=== PATIENT | male | born 1945 | race Caucasian/White ===

== ENCOUNTER → 2019-05-29 11:09 | Outpatient (CLI) | payer MEDICARE, OTHER, SELFPAY ==
--- NOTE | 2019-05-29 16:30 | LES_PTH ---
PATIENT: JADEN LEYVA LOC: [facility] U#:[id number] AGE/SX: 79/M ROOM: RE05/29/[address]: Dr. Devante Heller MD : 1945 BED: DIS: SPEC #: [id number] RECD: 05/30/19 09:58 STATUS: AMY GRETCHEN #: [id number] MARY: 05/29/19 16:[address]: Devante Heller DEPT: SURGICAL PATHOLOGY RECD BY: Javier Turcios Tissues: Skin of eyelid, NOS Procedures: Surgery Specimen Level IV HEADER OPERATION: Right upper lid lesion biopsy PRE-OP DIAGNOSIS: High suspicious for basal cell TISSUE SUBMITTED: Right upper eyelid lesion MICROSCOPIC DIAGNOSIS Right upper eyelid lesion, biopsy: Basal cell carcinoma. DEVON:mohsen 05/31/19 COMMENT Case has been reviewed in consultation with Dr. Vora who concurs with the above diagnosis. IDC:AM MICROSCOPIC DESCRIPTION Slides are reviewed. GROSS DESCRIPTION Received is one container labeled with the patient's name and not further designated. The specimen consists of two irregular fragments of best soft tissue that in aggregate measure 0.6 x 0.2 x 0.1 cm. The specimen is totally submitted in one cassette. / SJ:rg 05/30/19 TC:0 CPT: 80266
== END ==
PROVIDERS: Referring Provider Ophthalmology; Visit Provider Ophthalmology
DX: C44.1121 Basal cell carcinoma of skin of right upper eyelid, including canthus (principal)
CPT/HCPCS: 88305

== ENCOUNTER → 2019-05-29 16:30 | Outpatient (CLI) | payer MEDICARE, SELFPAY | PROVIDERS: Visit Provider Ophthalmology | DX: H02.9 Unspecified disorder of eyelid (principal) ==

== ENCOUNTER 2020-12-16 18:30 | Inpatient (IN) | payer MEDICARE, OTHER, SELFPAY ==
[2020-12-16 18:57] VITALS: BP 160/88; PULSE 81; RESP 18; TEMP 36.6; O2SAT 95; BMI 44.2
[2020-12-16 19:45] VITALS: BP 174/78; PULSE 86; RESP 18; TEMP 37.2; O2SAT 94
[2020-12-16 22:20] VITALS: O2SAT 94
[2020-12-16] MEDS: Carvedilol 3.125 MG TABLET PO (23:07)
[2020-12-16] MEDS: Atorvastatin Calcium 40 MG Tablet PO (23:07)
[2020-12-17 00:11] VITALS: O2SAT 96
--- NOTE | 2020-12-17 00:12 | CPS ---
pt has own cpap machine with nasal mask
[2020-12-17 05:44] LABS: Absolute Lymphocyte Count 0.92 X10^3/uL (0.83-4.51); Basophil# 0.02 X10^3/uL; Basophil% 0.6 % (0-1); Eosinophil# 0.09 X10^3/uL; Eosinophils% 2.7 % (0-5); Hematocrit 35.7 % (40-54); Lymphocyte # 0.92 X10^3/ul (0.83-4.51); Lymphocyte % 27.1 % (19-41); Mean Corp Hgb Conc 33.6 g/dL (32-36); Mean Corpuscular Hgb 30.2 pg (27.0-32.0); Mean Corpuscular Volume 89.9 fL (80-94); Mean Platelet Vol. 9.8 fl (6.2-12.0); Monocyte# 0.36 X10^3/uL; Monocyte% 10.6 % (0-10); NRBC Flagged by Analyzer 0 % (0-5); Neutrophil # 1.97 X10^3/uL (2.7-7.7); Neutrophil % 58.1 % (47-70); Platelet Count 146 K/mm3 (150-450); RBC Distribution Width CV 13.5 % (11.6-14.6); RBC Distribution Width SD 44.6 fl (35.1-43.9); Red Blood Count 3.97 M/mm3 (4.6-6.2); White Blood Count 3.4 K/mm3 (4.4-11.0)
[2020-12-17 06:28] LABS: ALB/GLOB Ratio 0.8 RATIO (0.9-2.4); AST(SGOT) 48 U/L (15-37); Alanine Aminotransfer ALT/SGPT 54 U/L (16-61); Alkaline Phosphatase 73 U/L (45-117); Anion Gap 6 (5-15); BUN 13 mg/dL (7-18); BUN/Creat Ratio 18.9 RATIO (10-20); Calcium,Total 8.3 mg/dL (8.5-10.1); Chloride 106 mmol/L (98-107); Creatinine, Serum 0.69 mg/dL (0.70-1.30); EST Glomerular Filtration Rate 119 mL/min (>60); Est Glom Filt Rate - Afr Amer 144 mL/min (>60); Estimated Creatinine Clearance 51.37 ml/min; Glucose 152 mg/dL (74-106); Magnesium 2.4 mg/dL (1.6-2.6); Phosphorus 2.7 mg/dL (2.5-4.9); Potassium 3.5 mmol/L (3.5-5.1); Sodium Level 138 mmol/L (136-145)
[2020-12-17 08:02] VITALS: BP 168/75; PULSE 69; RESP 18; TEMP 37.1; O2SAT 93
[2020-12-17] MEDS: Carvedilol 3.125 MG TABLET PO ×2 (08:08→17:28)
[2020-12-17] MEDS: amLODIPine 5 MG Tablet PO ×2 (08:08→12:26)
[2020-12-17] MEDS: Aspirin E.C. 81 MG Tablet PO (08:09)
[2020-12-17] MEDS: Clopidogrel Bisulfate 75 MG Tablet PO (08:09)
[2020-12-17] MEDS: Senna/Docusate Sodium 1 Tablet 2 TABLET PO (08:09)
[2020-12-17 10:55] VITALS: BMI 44.2
--- NOTE | 2020-12-17 12:03 | HP.PCM_ITS ---
HPI - General General Date of Admission: 12/16/20 Date of Service: 12/17/20 Chief Complaint: Debility secondary to ischemic right MCA stroke HPI Narrative JADEN LEYVA, is a 75-year-old M with a past medical history of hypertension, hyperlipidemia, coronary artery disease, history of CABG, history of bioprosthetic aortic valve replacement, WILLIAM, morbid obesity, newly diagnosed diabetes mellitus type 2, DVT with pulmonary embolus (pt can not recall if provoked or unprovoked), prostate cancer diagnosed in 2005 ( treated with sh ots that he still gets monthly form his urologist), tobacco dependence in remission, prostatic hypertrophy, dilated ascending aorta and radicular pain in the Left buttock and groin who present presented to an outside ER on 12/10/20 with LUE weakness and numbness. The LLE had been weak for months and he attributes this to back problems which started after he fell off a treadmill. The CTB showed no acute pathology and he was given TPA in the ED and then transported to [facility]. Initially the CT at [facility] showed lacunar infarcts in the BL basal ganglia and the joseph. MRI was not done due to WILLIAM and valve replacement however he had an extension of the sx and the LUE became flaccid. MRI showed an ischemic infarct in the R MCA distribution gretel the R parietal and the R occipital lobes. There was a very small area of hemorrhagic transformation which is stable. He was placed on dual antiplatelet drugs which he will take for 3 months and then 1 of the antiplatelet drugs can be discontinued. ECHO showed no PFO and he had no atrial tachy dysrhythmias or AF. The EF is 80%. The findings on the MRI with multiple areas of infarct in the R parietal and occipital lobes is suspicious for AF and he will need an event monitor following DC from Rehab. He has multiple RF's for AF. He was transferred to the acute rehab unit at [facility] on 12/16/20 for 3 hours of therapy daily to restore function/independence at or near his level prior to the stroke. COUNTS INCLUDE 234 BEDS AT THE [facility] Medical History (Updated 12/17/20 @ 18:[address] Ursula Louie DO) Chronic sphenoidal sinusitis Coronary artery disease CVA (cerebral vascular accident) History of prostate cancer History of TIA (transient ischemic attack) History of venous thromboembolism HTN (hypertension) Hyperlipidemia Morbid obesity Obstructive sleep apnea Tobacco dependence in remission Home Medications amlodipine 5 mg PO DAILY 12/16/20 [History Last Taken Unknown] aspirin 81 mg PO DAILY 12/16/20 [History Last Taken Unknown] atorvastatin 40 mg PO QHS 12/16/20 [History Last Taken Unknown] carvedilol 3.125 mg PO BID 12/16/20 [History Last Taken Unknown] clopidogrel 75 mg PO/SL DAILY 12/16/20 [History Last Taken Unknown] evolocumab [Repatha Syringe] 140 mg SUBCUT QWEEK 12/16/20 [History Last Taken 12/13/20] tamsulosin 0.4 mg PO DAILY 12/16/20 [History Last Taken Unknown] Allergy/AdvReac Type Severity Reaction Status Date / Time losartan Allergy Other Verified 12/16/20 19:27 Family History (Updated 12/17/20 @ 15:[address] Ursula Louie DO) Father Cancer lymphosarcoma Mother Cancer throughout her internal organs......he thinks it started in the liver Surgical History (Updated 12/17/20 @ 16:[address] Ursula Louie DO) H/O aortic valve replacement History of coronary artery bypass graft History of partial colectomy History of right shoulder replacement History of total left knee replacement (TKR) History of total right knee replacement (TKR) Social History (Updated 12/17/20 @ 16:[address] Ursula Louie DO) household members: spouse housing: house current occupation: retired Smoking Status: Former smoker details: rare use......1 bottle of wine lasts him a year caffeine: Yes ROS Constitutional Constitutional: Reports weakness; Denies anorexia, change in weight, chills, fatigue, fever(s) or night sweats Eyes Eyes: Denies blurry vision, change in vision, double vision, eye pain or loss of vision ENT HEENT: Reports abnormal hearing and post nasal drip; Denies dysphagia, headache(s), hearing loss, loss taste/smell, nasal congestion, nasal discharge, sinus pain, sinus pressure or sore throat Cardiovascular Cardiovascular: Reports edema; Denies chest pain, dyspnea on exertion, light headedness, orthopnea, palpitations, paroxysmal nocturnal dyspnea or syncope Respiratory/Chest Respiratory/Chest: Reports cough and shortness of breath with exertion; Denies dyspnea, shortness of breath at rest or wheezing Gastrointestinal Gastrointestinal: Denies abdominal pain, constipation, diarrhea, dyspepsia, hematemesis, hematochezia, nausea or vomiting Genitourinary Genitourinary: Denies dysuria, hematuria or urinary incontinence Musculoskeletal Musculoskeletal: Reports back pain, extremity pain and other Details: He has pain in the R buttock that radiates around to the groin. ; Denies joint pain, joint swelling or neck pain Integumentary Integumentary: Reports dry skin; Denies jaundice, rash or wounds Neurologic Neurologic: Denies confusion, disequilibrium, dizziness, focal weakness, headache(s), paresthesias, seizures or tremor(s) Psychiatric Psychiatric: Denies anxiety, depression, homicidal ideation or suicidal ideation Endocrine Endocrinology: Denies change in body appearance, polydipsia or polyuria Hematologic/Lymphatic Hematologic/Lymphatic: Denies easy bleeding, easy bruising or lymphadenopathy Allergic/Immunologic Allergic/Immunologic: Denies rhinitis, eczemia or asthma Vital Signs Vital Signs Vital Signs: 12/16/20 18:57 12/16/20 19:45 12/16/20 22:20 Temperature 97.9 F 99 F Temperature Source Oral Temporal Pulse Rate 81 86 Respiratory Rate 18 18 Respiratory Effort Normal Blood Pressure 160/88 H 174/78 H Blood Pressure Mean 112 110 Blood Pressure Source Monitor Monitor Blood Pressure Position Semi-Fowlers Semi-Fowlers Blood Pressure Location Right Arm Right Arm Pulse Ox 95 94 94 Oxygen Delivery Method Room Air Room Air Room Air 12/17/20 00:11 12/17/20 08:02 Temperature 98.7 F Temperature Source Oral Pulse Rate 69 Respiratory Rate 18 Respiratory Effort Blood Pressure 168/75 H Blood Pressure Mean 106 Blood Pressure Source Monitor Blood Pressure Position Semi-Fowlers Blood Pressure Location Right Arm Pulse Ox 96 93 Oxygen Delivery Method Bi-pap Room Air Weight Weight: 250 lb Body Mass Index (BMI) 44.2 Indicators for Scoring Admitted with or Primary Diagnosis of CVA/Stroke: Yes Hx of CVA/Stroke: Yes Modified Pato Score MRS Score at time of Evaluation: 5-Severe disability NIHSS NIHSS 1a. Level of Consciousness: Alert; keenly responsive 1b. LOC Questions: Answers BOTH questions correctly. 1c. LOC Commands: Performs both tasks correctly. 2. Best Gaze: Normal 3. Visual: No visual loss 4. Facial Palsy: Partial paralysis (total or near-total paralysis of lower face) 5a. Left Arm: No movement 5b. Right Arm: Drift; arm drifts downward but doesn?t hit the bed 6a. Left Leg: Some effort against gravity; 6b. Right Leg: No drift; leg holds 30-degree position for full 5 seconds 8. Sensory: Normal; no sensory loss 9. Best Language: No aphasia; normal 10. Dysarthria: Normal 11. Extinction and Inattention: No abnormality Total: 9 Stroke Questions Stroke Team Activated: No Physical Exam Const alert, oriented x3, no apparent distress and well nourished Constitutional Narrative: Making good eye contact, appropriate. 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 the carotids had a brisk upstroke and good pulse volume General: trachea midline; Negative for lymphadenopathy Resp normal respiratory effort, no use of accessory muscles and clear to auscultation bilaterally Resp Narrative: Not tachypneic and no conversational dyspnea. Diminished BS's - possibly due to body habitus Cardio regular rate, regular rhythm, S1 normal heart sound, S2 normal heart sound, no murmurs, no rub and no gallops GI normal to inspection, nondistended, normoactive bowel sounds, soft to palpation and non-tender GI Narrative: No guarding with palpation. Extremity Extremity Narrative: Negative Timbo's and Christian's signs but the left calf is painful to touch. He has edema of the legs and his fingers appear swollen. Good capillary refill General Extremity: Negative for clubbing or cyanosis Skin Skin Narrative: No rashes, no skin breakdown. Neuro oriented x3 Neuro Narrative: He has no dysmetria. He can not do heel to cobb due to inflexibilty of the Knees. Can not do finger nose on the L because the LUE is flaccid. Psych affect normal Psych Narrative: Appropriate, making good eye contact. Able to stay on topic but he is forgetful and is having difficulty remembering details of his medical history. No flight of ideas. Does not appear anxious or depressed. Conversant and relating well to staff. He is friendly and polite Results Lab / Micro Data Result Diagrams: 12/17/20 05:27 12/17/20 05:27 Labs: Laboratory Results - last 24 hr 12/17/20 05:27: WBC 3.4 L, RBC 3.97 L, Hgb 12.0 L, Hct 35.7 L, MCV 89.9, MCH 30.2, MCHC 33.6, RDW Std Deviation 44.6 H, RDW Coeff of Esequiel 13.5, Plt Count 146 L, MPV 9.8, Immature Gran % (Auto) 0.900, Neut % (Auto) 58.1, Lymph % (Auto) 27.1, [place] % (Auto) 10.6 H, Eos % (Auto) 2.7, Baso % (Auto) 0.6, Absolute Neuts (auto) 2.0, Absolute Lymphs (auto) 0.92, Nucleated RBC % 0 12/17/20 05:27: Sodium 138, Potassium 3.5, Chloride 106, Carbon Dioxide 26.0, Anion Gap 6, BUN 13, Creatinine 0.69 L, Estim Creat Clear Calc 51.37, Est GFR (MDRD) Af Amer 144, Est GFR (MDRD) Non-Af 119, BUN/Creatinine Ratio 18.9, Glucose 152 H, Calcium 8.3 L, Phosphorus 2.7, Magnesium 2.4, Total Bilirubin 0.50, AST 48 H, ALT 54, Alkaline Phosphatase 73, Total Protein 7.0, Albumin 3.0 L, Globulin 4.0, Albumin/Globulin Ratio 0.8 L Assessment & Plan Assessment/Plan (1) Physical debility: (2) Ischemic cerebrovascular accident (CVA): (3) Cognitive dysfunction: (4) Left hemiparesis: (5) Pancytopenia: (6) Diabetes mellitus type 2 in obese: (7) Obstructive sleep apnea: (8) Ascending aorta dilation: (9) Carotid stenosis, bilateral: (10) Chronic sphenoidal sinusitis: (11) Low HDL (under 40): (12) Morbid obesity: (13) Hyperlipidemia: (14) HTN (hypertension): (15) Coronary artery disease: (16) H/O aortic valve replacement: (17) History of coronary artery bypass graft: (18) Radicular pain of right lower extremity: PLAN: PLAN PT for gait stability OT for ADL's ST for evaluation Analgesics as needed Bowel protocol Fall precautions Assess for Anxiety/Depression GI prophylaxis not indicated - asymptomatic with no hx of PUD DVT prophylaxis with SCD's and Cristobal xie for now and will need to ask neurology when we can start Lovenox......has had an unprovoked DVT/PE in the past. there was a small hemorrhagic conversion after TPA Follow up with Dr. Smiley and neurology and his rn tele following DC from [facility] Rehab AM lab including CMP, CBC, Mag and Phos - reviewed Needs an event monitor at DC. BP is not adequately controlled. Will increase the Amlodipine to 10 mg daily and add Hydralazine PRN Start Melatonin at night 1700 calorie cardiac diet. Weight loss advised. I reviewed the instructional systems design consultant's recommendations dual antiplatelet agents for 3 month and then Dc one of the drugs. Diabetic education while he is here - the DM is a new diagnosis. Charges/Coding Visit Charges Inpatient E&M: 32685 Init Hosp L3
--- NOTE | 2020-12-17 12:04 | PCM.RU.PYE ---
Admission Information Primary Diagnosis:: Debility due to ischemic CVA Status Changes from Prescreening?: No changes Identified Actual Problem List:: Cognitve Impr/Memory Loss, Mobility Impaired, Self Care Deficit, Ineffective Communication, Know.Dfct/Disease Process, Know.Dfct of Medicaitons, Diabetes, Hyperglycemia, BP, Hypertension and Alteration-Leisure Activ. Potential Problem List:: DVT, Bleeding, Infection, UTI, Aspiration, Falls, Skin Integrity and Depression Risk of Complications DVT: LMWH and ABELARDO Hose Bleeding: Monitor Lab Values, Nursing to Teach Precautions for anti-coagulation therapy., Wound, if applicable, to be assessed every shift. and Stroke patients assessed for lethargy or change in status. Infection: Clinical Staff to Monitor for S/S of infection: and S/S of infection include fever, redness, warmth, etc. Urinary Tract Infection: Monitor for frequency, burning, discomfort, or incontinence. and Nursing will obtain urine sample for urinalysis and C&S when ordered. Aspiration: Clinical staff will monitor for coughing, drooling, congestion., Speech will evaluate swallowing and dsyphasia. and Nursing will monitor patient swallowing during meals. Falls: Patient will be evaluated for Fall Precautions and Patient will be placed on Fall Precautions as indicated per protocol. Skin Breakdown: Nursing will assess skin daily using assessment tool. and Nursing will place on Skin Breakdown Precautions as indicated. Pain: Clinical staff will assess patient's pain level per protocol., Medications will be given, if needed, and the pain level reassessed. and Other methods: Massage, distraction, decrease stimulus, etc. used PRN. Plan of Care Patient requires physician specializing in physical medicine and rehab oversight to provide close medical supervision of rehab issues including: Pain Management, Sleep Problems, Bowel and Bladder, Medical and co-morbidity Management, DVT prophylaxis, Rehabilitation Leadership and Coordination of treatment team Patient needs Physical Therapy: For a minimum of 1 hour and At least 5 out of 7 days Patient needs Physical Therapy to improve:: Mobility, Strengthening, Transfers, Stretching, ROM, Endurance, Stairs, Gait and Balance Patient needs Occupational Therapy: For a minimum of 1 hour and At least 5 out of 7 days Patient needs Occupational Therapy to improve ADL's incl.: Eating, Grooming, Bathing, Dressing, Toileting, Toilet transfers, Community Reintegration, Higher functioning activities, Household tasks, Adaptive Equipment, Splinting and Other activities as determined Patient requires speech therapy: For a minimum of 1 hour and At least 5 out of 7 days Patient requires speech therapy for: Swallowing, Cognition, Language Skills and Compensatory Strategies Patient requires 24/ Rehabilitation Nursing for: Pain Issues, Identifying and preventing risk factors, Monitoring and reporting current medical conditions, Assisting with ambulation, transfer, and all ADL's, Teaching patients about disease process and medications, Family teaching, Providing safe environment, Bowel and Bladder Issues, Skin integrity and Medication Management Patient needs Civil Design Specialist/ Case Management for: Discharge Planning, Arranging Home Equipment or Services and Family Interventions Patient needs Dietary and Nutrition Services for: Adequate Nutrition, Nutritional Supplements and Nutritional Education Goals Patient will remain: free from falls and or injury at time of discharge. Patient will perform bed mobility at: MOD I level of assist. Patient will complete transfers from bed to chair at: MOD I level of assist. Patient will ambulate: - (Will ambulate 50 feet with the least restrictive device at standby assist on various surfaces) Patient will complete upper body dressing at: MOD I level of assist. Patient will complete lower body dressing at: MOD I level of assist. Patient will complete toileting at: MOD I level of assist. Patient will perform bathing at: MOD I level of assist. Patient will complete grooming at: MOD I level of assist. Patient will complete home management skills at: MOD I level of assist. Patient will achieve: - (8 steps with 2 handrails and 1 curb step) Patient will have pain level of: of 3 or less Patient's skin will: remain intact Patient will receive: adequate nutrition. Discharge Planning Pt Prognosis for Sig. Practical Improv. w/in Reasonable Time: Good Estimated Length of stay (days): 28 Anticipated D/C Destination: Home with Outpt Therapy Was Preadmission Assessment Accurate?: Yes
[2020-12-17] MEDS: Tamsulosin HCl 0.4 MG Capsule PO (17:28)
[2020-12-17 19:30] VITALS: BP 148/66; PULSE 87; RESP 18; TEMP 36.5; O2SAT 93
[2020-12-17 21:00] VITALS: BMI 44.2
[2020-12-17] MEDS: MELATONIN 3 MG TABLET PO (21:30)
[2020-12-17] MEDS: Atorvastatin Calcium 40 MG Tablet PO (21:30)
[2020-12-18 07:33] VITALS: BP 154/71; PULSE 73; RESP 18; TEMP 36.1; O2SAT 95
[2020-12-18 07:40] VITALS: O2SAT 94
[2020-12-18] MEDS: Clopidogrel Bisulfate 75 MG Tablet PO (09:06)
[2020-12-18] MEDS: Aspirin E.C. 81 MG Tablet PO (09:06)
[2020-12-18] MEDS: amLODIPine 10 MG Tablet PO (09:06)
[2020-12-18] MEDS: Menthol/Lanolin/Calamine/Znox 113 GM Tube 1 APPLIC TOPICAL ×2 (09:08→19:43)
[2020-12-18] MEDS: Nystatin Powder 15gm Bottle 1 APPLIC TOPICAL ×2 (09:10→19:45)
--- NOTE | 2020-12-18 09:26 | PCM.PN.BLA ---
Progress Note Afebrile VSS-the blood pressure is 154/71 today. Amlodipine was increased to 10 mg daily yesterday. Diastolic is within goal. Heart rate is well controlled. Will continue to monitor the BP and if in 3-4 days the systolic is still above goal will increase the Coreg Maintaining appropriate oxygen saturation on RA Oral intake is good Discussed with nursing - no problems that need addressed Reviewed the PT/OT/ST notes Medication list reviewed. He is coughing less today. He denies CP, SOB at rest, N/V/abd pain, lightheadedness, C/D, calf pain. Physical Exam Const alert, oriented x3 and no apparent distress Constitutional Narrative: sitting in the recliner at the bedside General Appearance: cooperative Nutritional Appearance: morbidly obese HEENT moist oral mucous membranes Eyes PERRL, EOMs intact bilaterally, conjunctivae normal, no scleral icterus and normal visual garland by confrontation Resp normal respiratory effort and clear to auscultation bilaterally Resp Narrative: BS's are diminished and this is likely due to body habitus Effort and Inspection: able to speak in complete sentences Cardio regular rate, regular rhythm, no murmurs, no rub and no gallops GI normal to inspection, nondistended, normoactive bowel sounds Extremity Extremity Narrative: flexibility in the knees is poor. He is still very painful in the left calf and although there is no significant edema the Left calf is bigger and he does have a hx of an unprovoked DVT/PE in the past and has not been on pharmacologic DVT prophylaxis. Skin General Skin Exam: no breakdown Rashes: no rashes Assessment & Plan Assessment/Plan (1) Rhinitis: QUALIFIERS: Rhinitis type: chronic Qualified Code(s): J31.0 - Chronic rhinitis (2) Radicular pain of right lower extremity: (3) Physical debility: (4) Pancytopenia: (5) Obstructive sleep apnea: (6) Ischemic cerebrovascular accident (CVA): (7) HTN (hypertension): (8) Hyperlipidemia: PLAN: 1. Start Atrovent nasal spray 2 sprays each nostril twice daily for rhinitis and postnasal drainage with chronic cough 2. Start Lyrica 25 mg p.o. twice daily for radicular pain in the LLE 3. Get a venous US of the L calf 4. Recheck a CBC with diff and a BMP on Monday. Visit Charges Inpatient E&M: 13994 Subs Hosp L2
[2020-12-18] MEDS: Carvedilol 3.125 MG TABLET PO ×2 (10:50→17:00)
[2020-12-18] MEDS: Pregabalin 25 MG Capsule PO ×2 (10:50→19:49)
--- NOTE | 2020-12-18 11:14 | NURSING ---
[facility]to see when pt will be able to start Lovenox. Messages is to be sent to the doctor and she will call back.
[2020-12-18] MEDS: Ipratropium Bromide 0.06% NASAL SPRAY 2 SPRAY NASAL ×2 (13:08→19:43)
--- NOTE | 2020-12-18 14:35 | NURSING ---
received call from Shamika wang-me to start Lovenox
[2020-12-18 14:54] VITALS: BMI 44.2
--- NOTE | 2020-12-18 15:18 | VDLE_ITS ---
Reason For Study: Pain Procedure LEFT This is a venous duplex using B-mode, color GSV is normal. flow and spectral Doppler. CFV is compressible, spontaneous, phasic, Exam performed portable in patient room. competent, and demonstrates normal A preliminary report was called and/or faxed augmentation. to Dr. Louie. FV is compressible, spontaneous, phasic, competent and demonstrates normal augmentation. POP V is compressible, spontaneous, phasic, competent and demonstrates normal augmentation. T/P Trunk is compressible. PTV is compressible. LT PerV is compressible. VL/Venous Duplex US, Unilateral Interpretation Summary There is no evidence of left lower extremity deep vein thrombosis. Left great s aphenous vein appears patent and compressible segmentally. Ordering Physician: Ursula Louie Performed By: Catherine Ash RVT
[2020-12-18] MEDS: Tamsulosin HCl 0.4 MG Capsule PO (17:00)
[2020-12-18 19:20] VITALS: BP 147/84; PULSE 70; RESP 18; TEMP 36.6; O2SAT 95
[2020-12-18] MEDS: Atorvastatin Calcium 40 MG Tablet PO (19:45)
[2020-12-18] MEDS: MELATONIN 3 MG TABLET PO (19:45)
[2020-12-18 21:01] LABS: Bedside Glucose 157 mg/dL (70-110)
[2020-12-18 23:55] VITALS: BMI 44.2
[2020-12-18 23:56] VITALS: PULSE 70; RESP 18
[2020-12-19] VITALS (7 sets, daily range): BP systolic 151–160; BP diastolic 51–79; PULSE 60–78; RESP 16; TEMP 36.6–36.7; O2SAT 94–97; BMI 44.2
[2020-12-19 06:41] LABS: Bedside Glucose 147 mg/dL (70-110)
[2020-12-19] MEDS: Pregabalin 25 MG Capsule PO ×2 (08:29→20:47)
[2020-12-19] MEDS: Ipratropium Bromide 0.06% NASAL SPRAY 2 SPRAY NASAL ×2 (08:29→20:42)
[2020-12-19] MEDS: Aspirin E.C. 81 MG Tablet PO (08:30)
[2020-12-19] MEDS: amLODIPine 10 MG Tablet PO (08:30)
[2020-12-19] MEDS: Carvedilol 3.125 MG TABLET PO ×2 (08:30→16:42)
[2020-12-19] MEDS: Clopidogrel Bisulfate 75 MG Tablet PO (08:31)
[2020-12-19] MEDS: Menthol/Lanolin/Calamine/Znox 113 GM Tube 1 APPLIC TOPICAL ×2 (08:32→20:47)
[2020-12-19] MEDS: hydrALAZINE 10 MG Tablet PO ×3 (08:32→20:55)
[2020-12-19] MEDS: Nystatin Powder 15gm Bottle 1 APPLIC TOPICAL ×2 (08:33→20:48)
[2020-12-19] MEDS: Tamsulosin HCl 0.4 MG Capsule PO (16:41)
[2020-12-19] MEDS: MELATONIN 3 MG TABLET PO (20:43)
[2020-12-19] MEDS: Atorvastatin Calcium 40 MG Tablet PO (20:43)
[2020-12-19 20:46] LABS: Bedside Glucose 223 mg/dL (70-110)
[2020-12-20 01:38] VITALS: BMI 44.2
--- NOTE | 2020-12-20 04:01 | NURSING ---
REVIEWED AND AGREE WITH WOOD CABINET FINISHER'S FUNCTIONAL ASSESSMENT AND HANDOFF CHARTING.
[2020-12-20 06:45] LABS: Bedside Glucose 164 mg/dL (70-110)
[2020-12-20 07:25] VITALS: BP 156/78; PULSE 70
[2020-12-20] MEDS: hydrALAZINE 10 MG Tablet PO ×2 (07:25→17:09)
[2020-12-20 08:15] VITALS: BP 149/74; PULSE 68; RESP 12; TEMP 36.6; O2SAT 96
[2020-12-20] MEDS: amLODIPine 10 MG Tablet PO (08:24)
[2020-12-20] MEDS: Ipratropium Bromide 0.06% NASAL SPRAY 2 SPRAY NASAL ×2 (08:24→22:38)
[2020-12-20] MEDS: Carvedilol 3.125 MG TABLET PO (08:24)
[2020-12-20] MEDS: Aspirin E.C. 81 MG Tablet PO (08:24)
[2020-12-20] MEDS: Clopidogrel Bisulfate 75 MG Tablet PO (08:24)
[2020-12-20] MEDS: Pregabalin 25 MG Capsule PO ×2 (08:27→22:37)
[2020-12-20] MEDS: Menthol/Lanolin/Calamine/Znox 113 GM Tube 1 APPLIC TOPICAL ×2 (08:27→22:37)
[2020-12-20] MEDS: Nystatin Powder 15gm Bottle 1 APPLIC TOPICAL ×2 (08:28→22:38)
[2020-12-20] MEDS: Acetaminophen 325 MG Tablet 650 MG PO (09:21)
--- NOTE | 2020-12-20 10:45 | NURSING ---
Dr. Louie aware of BP readings, see new order. Patient aware.
[2020-12-20 13:04] VITALS: BMI 44.2
[2020-12-20 17:09] VITALS: PULSE 84
[2020-12-20] MEDS: Tamsulosin HCl 0.4 MG Capsule PO (17:09)
[2020-12-20 17:11] VITALS: BP 154/88
[2020-12-20] MEDS: Carvedilol 6.25 MG Tablet PO (17:11)
[2020-12-20 18:55] VITALS: PULSE 75; RESP 16; TEMP 36.2; O2SAT 95
[2020-12-20 20:30] LABS: Bedside Glucose 206 mg/dL (70-110)
[2020-12-20 21:58] VITALS: BP 120/65; PULSE 79
[2020-12-20] MEDS: MELATONIN 3 MG TABLET PO (22:37)
[2020-12-20] MEDS: Atorvastatin Calcium 40 MG Tablet PO (22:37)
[2020-12-21] VITALS (7 sets, daily range): BP systolic 143–147; BP diastolic 58–77; PULSE 63–79; RESP 17–18; TEMP 36.5; O2SAT 97–98; BMI 44.2
[2020-12-21] MEDS: hydrALAZINE 10 MG Tablet PO ×3 (06:37→22:00)
[2020-12-21 07:05] LABS: Bedside Glucose 139 mg/dL (70-110)
[2020-12-21] MEDS: amLODIPine 10 MG Tablet PO (08:04)
[2020-12-21] MEDS: Aspirin E.C. 81 MG Tablet PO (08:04)
[2020-12-21] MEDS: Clopidogrel Bisulfate 75 MG Tablet PO (08:04)
[2020-12-21] MEDS: Carvedilol 6.25 MG Tablet PO ×2 (08:04→17:09)
[2020-12-21] MEDS: Ipratropium Bromide 0.06% NASAL SPRAY 2 SPRAY NASAL ×2 (08:04→20:24)
[2020-12-21] MEDS: Pregabalin 25 MG Capsule PO ×2 (08:06→20:24)
[2020-12-21] MEDS: Nystatin Powder 15gm Bottle 1 APPLIC TOPICAL ×2 (08:09→22:00)
[2020-12-21] MEDS: Menthol/Lanolin/Calamine/Znox 113 GM Tube 1 APPLIC TOPICAL ×2 (08:10→20:28)
--- NOTE | 2020-12-21 08:56 | PCM.PN.BLA ---
Progress Note Afebrile VSS - Systolic BP is consistently > 145. Coreg was increased to 6.25 mg BID yesterday Maintaining appropriate oxygen saturation on RA while awake Oral intake is good Blood sugar record was reviewed. The last 2 evenings the at bedtime blood sugar was greater than 200. No hypoglycemia Discussed with nursing - no problems that need addressed Reviewed the PT/OT/ST notes Medication list reviewed. He is not on medication for DM II. He insists that the cough her perseverates on is due to having taken Losartan a few years ago. when I pointed out the the cough associated with ARB's and POLINA inhibitors resolves with discontinuation of the drug he got very angry and started yelling. He is having some difficulty word finding today and he is resistant to doing ST for cognitive function because he does not feel he has a problem and the tasks that they have him do are for a 4th grader. I rarely hear him come now since the Atrovent nasal spray was started. He has been a smoker in the past. He has WILLIAM. He does not think he has had PFT's in the past. The cough goes away but, always come back. He denies CP. He also denies SOB at rest, palpitations, N/V/ abd pain, dysuria. Physical Exam Const alert Constitutional Narrative: Sitting in the recliner at the bedside and looks comfortable. He gets intermittently angry and abrupt. He is uncooperative at times, gretel with ST. General Appearance: uncooperative Eyes PERRL, EOMs intact bilaterally and normal visual garland by confrontation Neck Neck Narrative: short and thick General: trachea midline Resp normal respiratory effort Resp Narrative: He had some scattered rhonchi with expiration that resolved after a cough. No rales. Not tachypneic at rest. Effort and Inspection: able to speak in complete sentences Cardio regular rate, regular rhythm and no gallops GI GI Narrative: Obese, soft, ND, no guarding with palpation. Normal BS's. He is upset about having to use the BSC. He wants to go into the BR but, he requires 2 people to assist and he is obese and this is just not possible to manage at this point. PT was able to locate a large BSC that is closer to the ground and he is willing to try this. Extremity Extremity Narrative: swelling of the LUE, more likely than not due to the flaccid paralysis and inability to move the arm. Assessment & Plan Assessment/Plan (1) Physical debility: (2) Ischemic cerebrovascular accident (CVA): (3) Cognitive dysfunction: (4) Left hemiparesis: (5) Pancytopenia: (6) HTN (hypertension): (7) Chronic cough: PLAN: 1. D/W the ST the chronic cough with no wheezing and not improved with Atrovent nasal spray. Will get a MBS to look for dysphagia. 2. Etiology of the pancytopenia is not clear. Will recheck lab in 1 week and it he is still pancytopenic will recommend he follow up with hematology as an OP 3. Adjust the antihypertensives to get good control of the BP. 4. Continue therapy. Visit Charges Inpatient E&M: 88445 Subs Hosp L2
[2020-12-21] MEDS: Enoxaparin 40 MG/0.4 ML Syringe SC (11:07)
[2020-12-21 11:22] LABS: Absolute Lymphocyte Count 0.88 X10^3/uL (0.83-4.51); Absolute Neutrophil Count 1.1 X10^3/uL (2.0-7.7); Basophil# 0.02 X10^3/uL; Basophil% 0.8 % (0-1); Eosinophil# 0.12 X10^3/uL; Eosinophils% 4.9 % (0-5); Hematocrit 38.7 % (40-54); Lymphocyte # 0.88 X10^3/ul (0.83-4.51); Lymphocyte % 35.6 % (19-41); Mean Corpuscular Hgb 29.6 pg (27.0-32.0); Mean Corpuscular Volume 95.6 fL (80-94); Mean Platelet Vol. 10.7 fl (6.2-12.0); Monocyte# 0.28 X10^3/uL; Monocyte% 11.3 % (0-10); NRBC Flagged by Analyzer 0 % (0-5); Neutrophil # 1.13 X10^3/uL (2.7-7.7); Neutrophil % 45.8 % (47-70); Platelet Count 154 K/mm3 (150-450); RBC Distribution Width CV 13.4 % (11.6-14.6); RBC Distribution Width SD 46.3 fl (35.1-43.9); Red Blood Count 4.05 M/mm3 (4.6-6.2); White Blood Count 2.5 K/mm3 (4.4-11.0)
[2020-12-21 11:42] LABS: Anion Gap 10 (5-15); BUN 14 mg/dL (7-18); BUN/Creat Ratio 18.5 RATIO (10-20); Calcium,Total 8.8 mg/dL (8.5-10.1); Chloride 107 mmol/L (98-107); Creatinine, Serum 0.76 mg/dL (0.70-1.30); EST Glomerular Filtration Rate 107 mL/min (>60); Est Glom Filt Rate - Afr Amer 129 mL/min (>60); Estimated Creatinine Clearance 51.37 ml/min; Glucose 133 mg/dL (74-106); Potassium 3.8 mmol/L (3.5-5.1); Sodium Level 139 mmol/L (136-145)
--- NOTE | 2020-12-21 13:11 | CASEMGMT ---
Social Work Team meeting held. Patient present. No family present. Patient agreeable to this social services assistant contacting patient family after team meeting to update on Plan of Care. Patient approved 23 Medicare Days with discharge on or by 01/08/2021. Patient to continue with further care and treatment on the Rehab Unit. This social services assistant did broach topic of discharge plan for patient. Patient primary goal is to return to home with spouse. If patient is unable to discharge to home with spouse by 01/08/2021 patient plans to transition to a shelter home with first choice being [facility]. Telephone call to patient daughterJanay. No answer. No voicemail. Will continue to follow. Carlos BRAY, ERIC
[2020-12-21] MEDS: metFORMIN HCl 500 MG Tablet PO (17:09)
[2020-12-21] MEDS: Tamsulosin HCl 0.4 MG Capsule PO (17:09)
[2020-12-21] MEDS: MELATONIN 3 MG TABLET PO (20:24)
[2020-12-21] MEDS: Atorvastatin Calcium 40 MG Tablet PO (20:24)
[2020-12-21] MEDS: Senna/Docusate Sodium 1 Tablet 2 TABLET PO (20:24)
[2020-12-21] MEDS: guaiFENesin 10 ML UDC (200MG/10ML) PO (20:24)
[2020-12-21 21:11] LABS: Bedside Glucose 201 mg/dL (70-110)
[2020-12-22] MEDS: Enoxaparin 40 MG/0.4 ML Syringe SC (05:42)
[2020-12-22 06:45] LABS: Bedside Glucose 147 mg/dL (70-110)
[2020-12-22] MEDS: Carvedilol 6.25 MG Tablet PO ×2 (08:36→18:01)
[2020-12-22] MEDS: Aspirin E.C. 81 MG Tablet PO (08:36)
[2020-12-22] MEDS: Clopidogrel Bisulfate 75 MG Tablet PO (08:36)
[2020-12-22] MEDS: amLODIPine 10 MG Tablet PO (08:36)
[2020-12-22] MEDS: Ipratropium Bromide 0.06% NASAL SPRAY 2 SPRAY NASAL ×2 (08:36→20:26)
[2020-12-22] MEDS: Nystatin Powder 15gm Bottle 1 APPLIC TOPICAL ×2 (08:38→20:27)
[2020-12-22] MEDS: Menthol/Lanolin/Calamine/Znox 113 GM Tube 1 APPLIC TOPICAL ×2 (08:39→20:26)
[2020-12-22] MEDS: Pregabalin 25 MG Capsule PO ×2 (08:43→20:30)
[2020-12-22 08:51] VITALS: BP 139/69; PULSE 64; RESP 16; TEMP 36.2; O2SAT 97
--- NOTE | 2020-12-22 09:24 | CASEMGMT ---
Social Work This manager social services able to obtain Elayne Lomeli ([phone]), patient spouse contact information from patient. Patient agreeable to this manager social services contacting Elayne. Telephone call to Elayne Holly updated on team meeting from yesterday and the possibility that patient may need SNF placement. Elayne voicing understanding and also bring up [facility] as a possible option for placement. Patient had brought up [facility]. Elayne aware that no discharge date has been set but that patient will need to discharge on or by 01/08/2021. This manager social services updated patient chart with Elayne's contact information per patient request. Will continue to follow. Carlos BRAY, BLUS
--- NOTE | 2020-12-22 13:03 | ST.MBS ---
Modified Barium Swallow - Patient Information Study Date: 12/22/20 Study Time: 12:00 Direct Billable Minutes: 120 Total Minutes procedure & reportin Diagnosis: CVA Referring Physician: Ursula Louie Reason for Referral: Pt. was referred for objective videofluoroscopy swallow study to rule out aspiration with po intake due to coughing following drinks s/p CVA Medical History: JADEN LEYVA, is a 75-year-old M with PMH of Chronic sphenoidal sinusitis, Coronary artery disease, CVA (cerebral vascular accident), History of prostate cancer, History of TIA (transient ischemic attack), History of venous thromboembolism, HTN (hypertension), Hyperlipidemia, Morbid obesity, Obstructive sleep apnea, Tobacco dependence in remission. He was transferred to the acute rehab unit at [facility] on 12/16/20 for 3 hours of therapy daily to restore function/independence at or near his level prior to the stroke. Current Diet Ordered: Regular with Thin liquids Dentition: WNL, Natural Teeth Mental Status: WNL Comment: Pt. is currently receiving speech therapy services to address cognition, language and executive processing Respiratory Status: Oxygenating on Room Air - Penetration-Aspiration Scale Penetration-Aspiration Scale: OBJECTIVE ASSESSMENT OF SWALLOW FUNCTION (QUANTITATIVE ? PER TRIAL): PENETRATION / ASPIRATION SCALE (LICEA): 1 = does not enter airway 2 = enters airway/above vocal folds/ejected 3 = enters airway/above vocal folds/not ejected 4 = enters airway/contacts vocal folds/ejected 5 = enters airway/contacts vocal folds/not ejected 6 = enters airway/below vocal folds/ejected 7 = enters airway/below vocal folds/not ejected despite effort 8 = enters airway/below vocal folds/no effort - Penetration-Aspiration Scale Score Thin Liquid via teaspoon Result: 1= does not enter airway Thin Liquid via teaspoon Trial 2 Result: 1= does not enter airway Thin Liquid via small single sip from cup Result: 1= does not enter airway - unable to see airway due to shoulder blocking view Thin Liquid via small single sip from cup Trial 2 Result: 2= enter airway/above vocal folds/ejected Thin Liquid via sequential sips from cup Result: 4= enters airway/contacts vocal folds/ejected Thin Liquid via single sip from straw Result: 2= enter airway/above vocal folds/ejected - Pt. completed a natural chin tuck with this trial [place] Thick Liquid via small single sip from cup Result: 2= enter airway/above vocal folds/ejected Honey Thick Liquid via small single sip from cup Result: 1= does not enter airway Pudding via teaspoon Result: 1= does not enter airway Cookie via teaspoon Result: 1= does not enter airway Thin Liquid via small single sip from cup Trial 3 Result: 4= enters airway/contacts vocal folds/ejected Thin Liquid via teaspoon Trial 3 Result: 3= enters airways/above vocal folds/not ejected Thin Liquid via small single sip from cup Trial 4 Result: 4= enters airway/contacts vocal folds/ejected - pt. cued for small cup sip - Oral Phase Labial Seal: No Labial Escape Tongue Control During Bolus Hold: Posterior escape of less than half of bolus Bolus Preparation/Mastication: Timely and efficient chewing and mashing Bolus Transport/Lingual Motion: Delayed initiation of tongue motion Oral Residue: Trace residue lining oral structures - Pharyngeal Phase Initiation of Pharyngeal Swallow: Bolus head at posterior laryngeal surgace of epiglottis Soft Palate Elevation: No bolus between soft palate and pharyngeal wall Laryngeal Elevation: Partial superior movement thyroid cart/partial apprx aryt-epig petiole - difficult to see thyroid cartilage due to shoulders partially blocking view Anterior Hyoid Excursion: No anterior movement Epiglottic Movement: Partial inversion Laryngeal Vestibule Closure at Height of Swallow: Incomplete; narrow column of air/contrast in laryngeal vestibule Pharyngeal Stripping Wave: Present - diminished Pharyngoesophageal Segment Opening: Complete distension and complete duration; no obstruction of flow Tongue Base Retraction: Trace column of contrast between tongue base & post. pharyngeal wall Pharyngeal Residue: Trace residue within or on pharyngeal structures - along tongue base - Treatment Strategies Effects of treatment strategies attemped:: Pt. independently started po trials with chin tuck due to positioning in chair. - Diagnosis/Impression Diagnosis: moderate oropharyngeal dysphagia (R13.12) Impression: Pt. presents with oral phase dysphagia marked by decreased bolus hold and anterior-posterior transfer resulting in posterior premature spillage to the vallecula and trace oral residue. Pt. presents with pharyngeal phase dysphagia characterized by decreased tongue base retraction, delayed initiation of pharyngeal swallow, decreased hyoid and laryngeal elevation and excursion resulting in decreased laryngeal vestibule closure, decreased epiglottic deflection and penetration with thin liquids. Penetration was also present with nectar thick liquids, but did not reach the vocal folds and was evacuated. Due to the shoulders blocking the view of the airway and vocal folds, aspiration is difficult to rule out with deep penetration into the laryngeal vestibule with thin liquids. Pt. presented with silent penetration and possible aspiration immediately following the swallow with thin liquids. However, at the end of the study, pt. presented with significant throat clearing and coughing. - Recommendations Diet: Regular Textures - IDDSI level 7, [place]-thick Liquids - IDDSI level 1 Comment: With demonstration of safe swallow strategies and precautions, pt. may benefit from Steve Free Water Protocol Compensatory Strategies: Small Bites, Small Sips, No Straws, Multiple Swallows, Alternate bites/solids and sips/liquids, Sitting upright, Remain sitting upright for 30 minutes after PO intake, Assist with verbal cues to use recommended strategies Supervision: 1:1 Close Supervision Recommend Repeat Modified Barium Swallow: TBD - with change in overall strength and decrease in over signs and symptoms of aspiration Need for Skilled Speech Therapy Services: Yes - to continue ST tx per POC during rehab stay Education Completed: 1. Described result of evaluation., 2. Pt understands evaluation & agrees with goals and treatment plan. - Status Active ST Patient: Active - Contact Information [facility] Speech Therapy:: [id number] [place], [place] [id number] Nandini Porras M.A., CCC-LINING STRAP CLOSER [email or web address] 12/22/20 13:22
[2020-12-22 15:05] VITALS: BMI 44.2
[2020-12-22] MEDS: metFORMIN HCl 500 MG Tablet PO (18:01)
[2020-12-22] MEDS: Tamsulosin HCl 0.4 MG Capsule PO (18:02)
[2020-12-22 18:05] VITALS: BP 144/63; PULSE 78
[2020-12-22] MEDS: hydrALAZINE 10 MG Tablet PO ×2 (18:05→22:10)
[2020-12-22 19:50] VITALS: PULSE 78; RESP 16; O2SAT 97; BMI 44.2
[2020-12-22 20:00] VITALS: BP 144/63; PULSE 78; RESP 16; TEMP 36.8; O2SAT 97
[2020-12-22] MEDS: MELATONIN 3 MG TABLET PO (20:26)
[2020-12-22] MEDS: Atorvastatin Calcium 40 MG Tablet PO (20:27)
[2020-12-22 22:10] VITALS: BP 143/70; PULSE 73
[2020-12-22 22:25] LABS: Bedside Glucose 168 mg/dL (70-110)
[2020-12-23] MEDS: guaiFENesin 10 ML UDC (200MG/10ML) PO (01:42)
--- NOTE | 2020-12-23 01:44 | NURSING ---
staff to give hs medications and pt refused to drink nectar thick liquids, pt reeducated of the importance of following speech therapy orders and pt continues to refused for staff with any medications that were given this hs. pt offered medications in apple sauce and pt refused this as well
[2020-12-23] MEDS: Enoxaparin 40 MG/0.4 ML Syringe SC (06:05)
[2020-12-23 06:15] LABS: Bedside Glucose 144 mg/dL (70-110)
[2020-12-23] MEDS: Carvedilol 6.25 MG Tablet PO ×2 (08:26→17:29)
[2020-12-23] MEDS: Aspirin E.C. 81 MG Tablet PO (08:26)
[2020-12-23] MEDS: Ipratropium Bromide 0.06% NASAL SPRAY 2 SPRAY NASAL ×2 (08:26→22:56)
[2020-12-23] MEDS: amLODIPine 10 MG Tablet PO (08:26)
[2020-12-23] MEDS: Clopidogrel Bisulfate 75 MG Tablet PO (08:26)
[2020-12-23] MEDS: Pregabalin 25 MG Capsule PO ×2 (08:26→22:57)
[2020-12-23] MEDS: Nystatin Powder 15gm Bottle 1 APPLIC TOPICAL ×2 (08:27→23:03)
[2020-12-23] MEDS: Menthol/Lanolin/Calamine/Znox 113 GM Tube 1 APPLIC TOPICAL ×2 (08:27→23:03)
[2020-12-23 08:35] VITALS: PULSE 75; RESP 17; O2SAT 96; BMI 44.2
[2020-12-23 08:42] VITALS: BP 134/76; PULSE 75; RESP 17; TEMP 36.2; O2SAT 96
--- NOTE | 2020-12-23 16:44 | CHAPLAIN ---
Type of Pastoral Visit _x__ Initial Visit ___ Follow-up Visit ___ On-call Visit ___ General Patient Visit ___ Spiritual Assessment ___ Family Conference ___ Bereavement ___ Rapid Response ___ Code Blue ___ Other (describe below) Pastoral Care Referral From ___ Patient _x__ Family ___ Nurse ___ Physician ___ Snack Steward ___ [place] Make Ready Worker ___ Other (describe below) Sacrament/Intervention _x__ Active listening ___ Anointing ___ Caodaism ___ Bereavement ___ Communion ___ Yahaira exploration ___ ___ Life review _x__ Prayer ___ Reconciliation ___ Sacrament of Sick ___ Supportive presence ___ Wedding ___ Other (describe below) Pastoral Comments 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
[2020-12-23 17:00] VITALS: BMI 44.2
[2020-12-23] MEDS: metFORMIN HCl 500 MG Tablet PO (17:29)
[2020-12-23] MEDS: Tamsulosin HCl 0.4 MG Capsule PO (17:29)
[2020-12-23 20:15] VITALS: BP 116/80; PULSE 77; RESP 16; TEMP 36.8; O2SAT 98
[2020-12-23 20:45] LABS: Bedside Glucose 152 mg/dL (70-110)
[2020-12-23] MEDS: Atorvastatin Calcium 40 MG Tablet PO (22:57)
[2020-12-23] MEDS: MELATONIN 3 MG TABLET PO (22:57)
[2020-12-24 02:49] VITALS: BMI 44.2
[2020-12-24] MEDS: Enoxaparin 40 MG/0.4 ML Syringe SC (05:08)
[2020-12-24 06:25] LABS: Bedside Glucose 147 mg/dL (70-110)
[2020-12-24 08:12] VITALS: BP 162/77; PULSE 70; RESP 16; TEMP 36.4; O2SAT 99
[2020-12-24] MEDS: Carvedilol 6.25 MG Tablet PO ×2 (08:31→17:25)
[2020-12-24] MEDS: Aspirin E.C. 81 MG Tablet PO (08:31)
[2020-12-24] MEDS: Ipratropium Bromide 0.06% NASAL SPRAY 2 SPRAY NASAL ×2 (08:31→21:34)
[2020-12-24] MEDS: Clopidogrel Bisulfate 75 MG Tablet PO (08:32)
[2020-12-24] MEDS: amLODIPine 10 MG Tablet PO (08:32)
[2020-12-24] MEDS: Pregabalin 25 MG Capsule PO ×2 (08:32→21:34)
[2020-12-24] MEDS: Menthol/Lanolin/Calamine/Znox 113 GM Tube 1 APPLIC TOPICAL ×2 (08:37→21:34)
[2020-12-24] MEDS: Nystatin Powder 15gm Bottle 1 APPLIC TOPICAL ×2 (08:38→21:34)
--- NOTE | 2020-12-24 08:40 | NURSING ---
pt becomes upset with staff this am when giving am meds. pt tells this RN that he is able to take his medications with thin water. This RN corrects pt and states that he is is nectar thickened liquids and is on FWP and per speech therapy recomendations, he should take his pills with applesauce. This RN also explains how FWP works to the patient and that he is only able to have thin water if the patient's mouth is cleaned 30 minutes prior to the ingestion of thin water. Pt becomes upset with staff that he is not able to have thin water at all times. pt states those people downstairs are nazis. this RN explains to pt the possible risk of aspiration and possible pneumonia. pt still remains angry with staff and this RN reminds pt that nursing is unable to change speech recommendations and it is for safety measures. this RN will keep speech informed about pt concern with thickened liquids. call light within reach. pt denies further needs.
--- NOTE | 2020-12-24 09:33 | PCM.PN.BLA ---
Progress Note Afebrile VSS - systolic is mildly elevated into the high 130's and low 140's. The diastolic is WNL. Since being admitted to the rehab unit we have increased the Amlodipine and Coreg doses to get better control of the BP. The HR is WNL. Maintaining appropriate oxygen saturation on RA Oral intake is usually adequate. Discussed with nursing - He is agitated/belligerent at times. He has poor short term memory and can not recall why he is on thickened liquids and he does NOT want thickened liquids. The oropharyngeal dysphagia may be the reason he has a chronic cough. He has poor safety awareness and consistently overestimates his abilities. Reviewed the PT/OT/ST notes Medication list reviewed. The blood sugar record was reviewed and the blood sugars are under good control. He has had lacunar infarcts within the BL basal ganglia and in the R paramedian joseph. I suspect these may not be acute. The most recent multifocal infarcts involve primarily the R parietal and occipital lobes. Could he have pseudobulbar affect? He tells me that he does not feel the aerosol treatments have helped his cough. He denies shortness of breath. His cough is productive but he swallows the secretions. He denies chest pain. He also denies dysuria, lightheadedness, nausea, constipation. He has fecal incontinence which he states he has not had in the past. He has had urgency with defecation since his partial colon resection in the past. HE told me he thinks our science is fake and we are hindering his ability to recover by thickening his liquids. He has not complained about pain in the R back or the RLE since being stared on the Lyrica. Physical Exam Const alert and no apparent distress Constitutional Narrative: Sitting in the recliner at the bedside. Resp normal respiratory effort and clear to auscultation bilaterally Resp Narrative: diminished, likely due to body habitus Effort and Inspection: able to speak in complete sentences Cardio regular rate and regular rhythm Cardio Narrative: no ectopy GI GI Narrative: obese, soft, ND, NT, no guarding with palpation, normal BS's Extremity Extremity Narrative: HE is still flaccid in the LUE. He is able to move the LLE but it is still weak and today he could not lift the heel off the bed but he was able to move the leg side to side and flex his knee. Skin General Skin Exam: no breakdown and ecchymosis Rashes: no rashes Psych Psych Narrative: He has a difficult time staying on topic and tends to change the subject abruptly. He is emotionally labile, angry and yelling 1 minute and polite and pleasant in the next. HE is sleeping well. He is having trouble to higher level cognitive dysfunction and with short term memory. Assessment & Plan Assessment/Plan (1) Physical debility: (2) Ischemic cerebrovascular accident (CVA): (3) Cognitive dysfunction: (4) Left hemiparesis: (5) Oropharyngeal dysphagia: (6) Radicular pain of right lower extremity: (7) Diabetes mellitus type 2 in obese: PLAN: 1. Continue therapy 2. Continue the Lyrica 3. Consider adding a SSRI for emotional liability 4. Would like to talk with his about how his mentation was prior to the stroke. 5. Discontinued the DuoNeb aerosols 6. Continue to monitor the blood pressure closely with a goal of less than 135/80 to decrease risk for CVA's going forward. 7. Recheck a CBC and a BMP on Monday Visit Charges Inpatient E&M: 61432 Subs Hosp L2
[2020-12-24 16:06] VITALS: BMI 44.2
[2020-12-24] MEDS: Tamsulosin HCl 0.4 MG Capsule PO (17:25)
[2020-12-24] MEDS: metFORMIN HCl 500 MG Tablet PO (17:25)
[2020-12-24 19:14] VITALS: PULSE 72; RESP 16; TEMP 36.6; O2SAT 97
[2020-12-24 21:27] VITALS: BP 145/83; PULSE 75
[2020-12-24 21:33] VITALS: BP 145/83; PULSE 75
[2020-12-24] MEDS: guaiFENesin 10 ML UDC (200MG/10ML) PO (21:33)
[2020-12-24] MEDS: hydrALAZINE 10 MG Tablet PO (21:33)
[2020-12-24] MEDS: MELATONIN 3 MG TABLET PO (21:34)
[2020-12-24] MEDS: Atorvastatin Calcium 40 MG Tablet PO (21:34)
[2020-12-24 22:21] LABS: Bedside Glucose 153 mg/dL (70-110)
[2020-12-25 06:06] LABS: Bedside Glucose 129 mg/dL (70-110)
[2020-12-25] MEDS: Enoxaparin 40 MG/0.4 ML Syringe SC (06:08)
[2020-12-25 06:14] VITALS: BP 151/77; PULSE 69
[2020-12-25 06:16] VITALS: BP 151/77; PULSE 69
[2020-12-25] MEDS: hydrALAZINE 10 MG Tablet PO (06:16)
[2020-12-25 08:17] VITALS: BP 121/79; PULSE 69; RESP 18; TEMP 36.6; O2SAT 79
[2020-12-25] MEDS: amLODIPine 10 MG Tablet PO (08:24)
[2020-12-25] MEDS: Carvedilol 6.25 MG Tablet PO ×2 (08:24→17:28)
[2020-12-25] MEDS: Clopidogrel Bisulfate 75 MG Tablet PO (08:24)
[2020-12-25] MEDS: Aspirin E.C. 81 MG Tablet PO (08:24)
[2020-12-25] MEDS: Pregabalin 25 MG Capsule PO ×2 (08:27→23:01)
[2020-12-25] MEDS: Sertraline 50 MG Tablet PO (08:28)
[2020-12-25] MEDS: Menthol/Lanolin/Calamine/Znox 113 GM Tube 1 APPLIC TOPICAL ×2 (08:29→23:05)
[2020-12-25] MEDS: Ipratropium Bromide 0.06% NASAL SPRAY 2 SPRAY NASAL ×2 (08:29→23:01)
[2020-12-25 17:00] VITALS: BMI 44.2
[2020-12-25] MEDS: Tamsulosin HCl 0.4 MG Capsule PO (17:28)
[2020-12-25] MEDS: metFORMIN HCl 500 MG Tablet PO (17:28)
[2020-12-25 20:01] VITALS: BP 159/82; PULSE 80; RESP 16; TEMP 36.7; O2SAT 98
[2020-12-25 21:40] LABS: Bedside Glucose 159 mg/dL (70-110)
[2020-12-25 23:00] VITALS: BP 138/68; PULSE 75; RESP 18
[2020-12-25] MEDS: MELATONIN 3 MG TABLET PO (23:01)
[2020-12-25] MEDS: Atorvastatin Calcium 40 MG Tablet PO (23:01)
[2020-12-25] MEDS: Nystatin Powder 15gm Bottle 1 APPLIC TOPICAL (23:04)
[2020-12-25 23:05] VITALS: BMI 44.2
[2020-12-26] MEDS: Enoxaparin 40 MG/0.4 ML Syringe SC (06:44)
[2020-12-26 06:50] VITALS: BP 152/63; PULSE 72
[2020-12-26] MEDS: hydrALAZINE 10 MG Tablet PO (06:50)
[2020-12-26 07:01] LABS: Bedside Glucose 128 mg/dL (70-110)
[2020-12-26] MEDS: amLODIPine 10 MG Tablet PO (07:51)
[2020-12-26] MEDS: Ipratropium Bromide 0.06% NASAL SPRAY 2 SPRAY NASAL ×2 (07:51→21:34)
[2020-12-26] MEDS: Sertraline 50 MG Tablet PO (07:51)
[2020-12-26] MEDS: Senna/Docusate Sodium 1 Tablet 2 TABLET PO (07:51)
[2020-12-26] MEDS: Aspirin E.C. 81 MG Tablet PO (07:51)
[2020-12-26] MEDS: Clopidogrel Bisulfate 75 MG Tablet PO (07:51)
[2020-12-26] MEDS: Carvedilol 6.25 MG Tablet PO (07:51)
[2020-12-26] MEDS: Menthol/Lanolin/Calamine/Znox 113 GM Tube 1 APPLIC TOPICAL ×2 (07:52→21:37)
[2020-12-26] MEDS: Pregabalin 25 MG Capsule PO ×2 (07:54→21:34)
[2020-12-26 09:04] VITALS: BP 153/77; PULSE 72; RESP 16; TEMP 36.6; O2SAT 97
--- NOTE | 2020-12-26 09:54 | PCM.PN.BLA ---
Progress Note Afebrile SYS BP still high and he is getting Hydralazine at least once a day. BS's are well controlled. He is sleeping well nursing reports no problems His only complaint is he winters not like thickened liquids but, when the nurses tell him to remember the contact he recalls why he is on thickened liquids and he calms down No CP, SOB, lightheadedness. Orthostatics are negative. Alert, calm, cooperative Lungs - CTA HRRR Abd is soft and NT with normal BS's Assessment & Plan Assessment/Plan (1) Oropharyngeal dysphagia: (2) Diabetes mellitus type 2 in obese: (3) HTN (hypertension): (4) Ischemic cerebrovascular accident (CVA): PLAN: 1. Increase the coreg dose to 9.375 mg BID. Continue to monitor the HR. 2. Continue therapy Visit Charges Inpatient E&M: 00782 Subs Hosp L1
[2020-12-26 10:00] VITALS: BP 146/66
[2020-12-26] MEDS: Nystatin Powder 15gm Bottle 1 APPLIC TOPICAL (11:54)
[2020-12-26 17:00] VITALS: BMI 44.2
[2020-12-26] MEDS: Carvedilol 6.25 MG Tablet 9.375 MG PO (18:34)
[2020-12-26] MEDS: metFORMIN HCl 500 MG Tablet PO (18:35)
[2020-12-26] MEDS: Tamsulosin HCl 0.4 MG Capsule PO (18:35)
[2020-12-26] MEDS: MELATONIN 3 MG TABLET PO (21:34)
[2020-12-26] MEDS: Atorvastatin Calcium 40 MG Tablet PO (21:34)
[2020-12-26 21:54] VITALS: BP 158/77; PULSE 74; RESP 18; TEMP 36.7; O2SAT 97
[2020-12-26 22:01] LABS: Bedside Glucose 165 mg/dL (70-110)
[2020-12-26 23:04] VITALS: BMI 44.2
[2020-12-27] MEDS: Enoxaparin 40 MG/0.4 ML Syringe SC (05:27)
[2020-12-27 06:35] LABS: Bedside Glucose 132 mg/dL (70-110)
[2020-12-27] MEDS: Carvedilol 6.25 MG Tablet 9.375 MG PO ×2 (07:42→17:02)
[2020-12-27] MEDS: Aspirin E.C. 81 MG Tablet PO (07:43)
[2020-12-27] MEDS: Ipratropium Bromide 0.06% NASAL SPRAY 2 SPRAY NASAL ×2 (07:43→20:33)
[2020-12-27] MEDS: Sertraline 50 MG Tablet PO (07:43)
[2020-12-27] MEDS: amLODIPine 10 MG Tablet PO (07:43)
[2020-12-27] MEDS: Clopidogrel Bisulfate 75 MG Tablet PO (07:43)
[2020-12-27] MEDS: Pregabalin 25 MG Capsule PO ×2 (07:45→20:32)
[2020-12-27] MEDS: Nystatin Powder 15gm Bottle 1 APPLIC TOPICAL ×2 (07:46→20:32)
[2020-12-27 08:22] VITALS: BP 132/67; PULSE 68; RESP 16; TEMP 36.8; O2SAT 95
[2020-12-27 16:39] VITALS: BMI 44.2
[2020-12-27] MEDS: metFORMIN HCl 500 MG Tablet PO (17:02)
[2020-12-27] MEDS: Tamsulosin HCl 0.4 MG Capsule PO (17:02)
[2020-12-27 19:43] VITALS: PULSE 73; RESP 16
[2020-12-27] MEDS: Menthol/Lanolin/Calamine/Znox 113 GM Tube 1 APPLIC TOPICAL (20:32)
[2020-12-27] MEDS: MELATONIN 3 MG TABLET PO (20:33)
[2020-12-27] MEDS: Atorvastatin Calcium 40 MG Tablet PO (20:33)
[2020-12-27 21:00] VITALS: BMI 44.2
[2020-12-27 21:46] LABS: Bedside Glucose 144 mg/dL (70-110)
[2020-12-27 22:00] VITALS: BP 145/76; PULSE 73; RESP 17; TEMP 36.6; O2SAT 98
[2020-12-28] VITALS (7 sets, daily range): BP systolic 119–148; BP diastolic 56–75; PULSE 67–77; RESP 16; TEMP 36.6–36.7; O2SAT 97; BMI 44.2
[2020-12-28] MEDS: Enoxaparin 40 MG/0.4 ML Syringe SC (05:40)
[2020-12-28] MEDS: hydrALAZINE 10 MG Tablet PO ×3 (05:50→21:19)
[2020-12-28 06:00] LABS: Bedside Glucose 124 mg/dL (70-110)
[2020-12-28] MEDS: Sertraline 50 MG Tablet PO (07:46)
[2020-12-28] MEDS: amLODIPine 10 MG Tablet PO (07:46)
[2020-12-28] MEDS: Ipratropium Bromide 0.06% NASAL SPRAY 2 SPRAY NASAL ×2 (07:46→21:20)
[2020-12-28] MEDS: Clopidogrel Bisulfate 75 MG Tablet PO (07:46)
[2020-12-28] MEDS: Aspirin E.C. 81 MG Tablet PO (07:46)
[2020-12-28] MEDS: Carvedilol 6.25 MG Tablet 9.375 MG PO ×3 (07:48→21:16)
[2020-12-28] MEDS: Senna/Docusate Sodium 1 Tablet 2 TABLET PO ×2 (07:49→21:18)
[2020-12-28] MEDS: Menthol/Lanolin/Calamine/Znox 113 GM Tube 1 APPLIC TOPICAL ×2 (07:51→21:21)
[2020-12-28] MEDS: Pregabalin 25 MG Capsule PO ×2 (07:51→21:20)
[2020-12-28] MEDS: Nystatin Powder 15gm Bottle 1 APPLIC TOPICAL ×2 (07:51→21:20)
--- NOTE | 2020-12-28 12:14 | PN_ITS ---
Progress Note Ed was seen on team rounds today. No one was available from his family to participate. Afebrile VSS Maintaining appropriate oxygen saturation on RA Oral intake is adequate Blood sugar record was reviewed and blood sugars are in good control. Discussed with nursing - no problems that need addressed other than his repeated complaints about the thickened liquids which he refers to as pond scum. Reviewed the PT/OT/ST notes He ambulated 3 X's today at the wall rail with 1 person only. He has a WC follow when he is using the junito-walker. He requires a lot of assistance. He told the ST initially that he has not been doing the swallowing exercises she gave him last . They were the folder she gave him. He later said they do not help. We explained once again why it is necessary to thicken his liquids and prevent Pneumonia. Medication list reviewed. He is sleeping and eating well. He can groom himself but requires assistance with bathing, dressing, toileting. It take 2 people to take him to the restroom. He has sometimes been incontinent with stool. Denies chest pain, lightheadedness, shortness of breath. He states his cough persists but I have not heard him cough all day. He is argumentative. He is tolerating the Sertraline with no adverse reactions. He denies calf pain, N/V/abd pain. Physical Exam Const alert, oriented x3 and no apparent distress Constitutional Narrative: Sitting in the recliner at the bedside. Argumentative. Eyes PERRL and EOMs intact bilaterally Resp normal respiratory effort and clear to auscultation bilaterally Resp Narrative: diminished due to body habitus. Not tachypneic and no accessory muscle use. Effort and Inspection: able to speak in complete sentences Cardio regular rate, regular rhythm and no gallops GI normal to inspection, nondistended, normoactive bowel sounds and soft to palpation Back/Spine Back/Spine Narrative: He has not complained of back or leg pain since the Lyrica was started. Extremity no calf tenderness Skin General Skin Exam: no breakdown Rashes: no rashes Neuro Neuro Narrative: The LUE is still flaccid. He has no facial droop. He is able to move his LLE forward when ambulating but the PT blocks his knee to prevent the leg from buckling. Assessment & Plan Assessment/Plan (1) Physical debility: (2) Ischemic cerebrovascular accident (CVA): PLAN: Continue therapy. Will likely need to go to an ECF at [place]. He is OK with this and would like to go to [facility] or [facility]. (3) Oropharyngeal dysphagia: PLAN: continue the current diet. The ST took the cards with the exercises he is supposed to do as often as possible to improve his swallowing in front of him. I do not see him being compliant with the thickened liquids at [place]. I also do not see him taking the initiative to do the exercises for swallowing. (4) Cognitive dysfunction: (5) Left hemiparesis: PLAN: LUE is still flaccid. The left leg has some improvement in strength. (6) Chronic cough: PLAN: He continues to argue with me about the cough. I am 1 door down from him in my office and before the thickened liquids and the Atrovent nasal spray he was coughing all the time. I rarely him him cough now. He is very argumentative and says the cough has not improved at all and continues to blame the cough on an adverse reaction to Losartan which he no longer takes. (7) Radicular pain of right lower extremity: PLAN: No complaints since he was started on Lyrica 25 mg BID (8) Pancytopenia: (9) Diabetes mellitus type 2 in obese: PLAN: Well controlled (10) HTN (hypertension): PLAN: Continue to adjust the antihypertensives until the BP is consistently less than 135/80. I Hesitate to add a diuretic because he will not drink the thickened liquids...... he is drinking Steve water. Visit Charges Inpatient E&M: 33480 Subs Hosp L2
--- NOTE | 2020-12-28 17:11 | CASEMGMT ---
Social Work IDT met with patient for Team meeting. Discussed patient's progress in therapy and nursing. Discussed Medicare approved 23 days with DC 01/08. Pt agreeable to DC to SNF, if needed. Prefers [facility] or [facility]. Explained Medicare benefit in SNF. Will ReTeam next week, ASA Fuentes WOMEN'S LACROSSE COACH
[2020-12-28] MEDS: Tamsulosin HCl 0.4 MG Capsule PO (17:12)
[2020-12-28] MEDS: metFORMIN HCl 500 MG Tablet PO (17:12)
[2020-12-28] MEDS: Atorvastatin Calcium 40 MG Tablet PO (21:16)
[2020-12-28] MEDS: MELATONIN 3 MG TABLET PO (21:22)
[2020-12-28 21:41] LABS: Bedside Glucose 158 mg/dL (70-110)
[2020-12-29] VITALS (8 sets, daily range): BP systolic 141–201; BP diastolic 60–90; PULSE 64–73; RESP 16–18; TEMP 36.6–36.8; O2SAT 96–97; BMI 44.2
--- NOTE | 2020-12-29 02:57 | NURSING ---
Reviewed and agree with SENIOR PAINTER documentation and assessment charting.
[2020-12-29] MEDS: Nystatin Powder 15gm Bottle 1 APPLIC TOPICAL ×2 (06:32→22:27)
[2020-12-29] MEDS: Enoxaparin 40 MG/0.4 ML Syringe SC (06:32)
[2020-12-29] MEDS: Menthol/Lanolin/Calamine/Znox 113 GM Tube 1 APPLIC TOPICAL ×2 (06:41→22:27)
[2020-12-29] MEDS: hydrALAZINE 10 MG Tablet PO ×3 (06:42→22:28)
[2020-12-29 06:50] LABS: Bedside Glucose 121 mg/dL (70-110)
[2020-12-29] MEDS: Aspirin E.C. 81 MG Tablet PO (09:30)
[2020-12-29] MEDS: Ipratropium Bromide 0.06% NASAL SPRAY 2 SPRAY NASAL ×2 (09:31→22:26)
[2020-12-29] MEDS: Clopidogrel Bisulfate 75 MG Tablet PO (09:31)
[2020-12-29] MEDS: Senna/Docusate Sodium 1 Tablet 2 TABLET PO (09:31)
[2020-12-29] MEDS: Pregabalin 25 MG Capsule PO ×2 (09:36→22:28)
[2020-12-29] MEDS: Sertraline 50 MG Tablet PO (09:37)
[2020-12-29] MEDS: amLODIPine 10 MG Tablet PO (09:37)
--- NOTE | 2020-12-29 09:42 | NURSING ---
Pt's Blood pressure 201/[address] Louie updated and would like a dose of Apresoline to be given.
[2020-12-29] MEDS: Carvedilol 6.25 MG Tablet 9.375 MG PO (10:08)
--- NOTE | 2020-12-29 10:33 | PN_ITS ---
Progress Note Afebrile VSS - BP's had been improving but, today the BP is 201/90? He is currently taking amlodipine 10 mg p.o. daily and Coreg 9.375 mg twice daily. Yesterday he had 3 doses of hydralazine 10 mg for elevated blood pressures. Pulses ranged from 68-77 in the past 48 hours. Maintaining appropriate oxygen saturation on RA Oral intake is less than 1000 cc daily because he does not like thickened liquids and is not drinking enough Steve water. Discussed with nursing - no problems that need addressed Reviewed the PT/OT/ST notes Medication list reviewed. Blood sugars are well controlled. He denies lightheadedness. His only complaint today once again is that he does not like thickened liquids and cannot understand why he cannot drink regular coffee. Short term memory is poor and we are having to repeat the same information about the thickened liquids every day. He realizes he will not be going home after he leaves rehab. He wants to go to [facility] or [facility] so that he can be closer to home. He denies chest pain, shortness of breath, sore throat, nausea/vomiting/abdominal pain, palpitations. Physical Exam Const alert, oriented x3 and no apparent distress Resp normal respiratory effort and clear to auscultation bilaterally Cardio regular rate, regular rhythm and no gallops GI normal to inspection, nondistended, normoactive bowel sounds and soft to palpation Assessment & Plan Assessment/Plan (1) Oropharyngeal dysphagia: (2) Physical debility: PLAN: 1. BMP and CBC without differential in the a.m. 2. Increase the Coreg to 12.5 mg BID Visit Charges Inpatient E&M: 81941 Subs Hosp L1
[2020-12-29] MEDS: Carvedilol 12.5 MG Tablet PO (17:43)
[2020-12-29] MEDS: metFORMIN HCl 500 MG Tablet PO (17:44)
[2020-12-29] MEDS: Tamsulosin HCl 0.4 MG Capsule PO (17:44)
[2020-12-29] MEDS: MELATONIN 3 MG TABLET PO (22:28)
[2020-12-29] MEDS: Atorvastatin Calcium 40 MG Tablet PO (22:28)
[2020-12-29] MEDS: Acetaminophen 325 MG Tablet 650 MG PO (22:43)
[2020-12-30 00:12] LABS: Bedside Glucose 113 mg/dL (70-110)
--- NOTE | 2020-12-30 03:58 | NURSING ---
Reviewed and agree with SENIOR SQL DEVELOPER documentation and charting.
[2020-12-30 06:23] VITALS: BP 142/67; PULSE 68
[2020-12-30] MEDS: Enoxaparin 40 MG/0.4 ML Syringe SC (06:23)
[2020-12-30] MEDS: hydrALAZINE 10 MG Tablet PO ×2 (06:23→16:25)
[2020-12-30] MEDS: Menthol/Lanolin/Calamine/Znox 113 GM Tube 1 APPLIC TOPICAL ×2 (06:28→22:15)
[2020-12-30] MEDS: Nystatin Powder 15gm Bottle 1 APPLIC TOPICAL ×2 (06:28→22:14)
[2020-12-30 06:45] LABS: Bedside Glucose 122 mg/dL (70-110)
[2020-12-30 07:28] VITALS: BP 142/67; PULSE 68; RESP 16; TEMP 36.8; O2SAT 96
[2020-12-30] MEDS: Ipratropium Bromide 0.06% NASAL SPRAY 2 SPRAY NASAL ×2 (07:56→22:14)
[2020-12-30] MEDS: Aspirin E.C. 81 MG Tablet PO (07:56)
[2020-12-30] MEDS: Carvedilol 12.5 MG Tablet PO ×2 (07:56→16:26)
[2020-12-30] MEDS: Clopidogrel Bisulfate 75 MG Tablet PO (07:57)
[2020-12-30] MEDS: amLODIPine 10 MG Tablet PO (07:57)
[2020-12-30] MEDS: Sertraline 50 MG Tablet PO (07:57)
[2020-12-30] MEDS: Pregabalin 25 MG Capsule PO ×2 (07:57→22:18)
[2020-12-30 08:02] LABS: Hematocrit 34.8 % (40-54); Hemoglobin 11.4 g/dL (13.0-16.5); Mean Corp Hgb Conc 32.8 g/dL (32-36); Mean Corpuscular Hgb 29.4 pg (27.0-32.0); Mean Corpuscular Volume 89.7 fL (80-94); Mean Platelet Vol. 9.6 fl (6.2-12.0); Platelet Count 166 K/mm3 (150-450); RBC Distribution Width CV 13.2 % (11.6-14.6); RBC Distribution Width SD 43.6 fl (35.1-43.9); Red Blood Count 3.88 M/mm3 (4.6-6.2); White Blood Count 3.3 K/mm3 (4.4-11.0)
[2020-12-30 08:22] LABS: Anion Gap 5 (5-15); BUN 16 mg/dL (7-18); BUN/Creat Ratio 22.9 RATIO (10-20); Calcium,Total 8.6 mg/dL (8.5-10.1); Chloride 108 mmol/L (98-107); EST Glomerular Filtration Rate 117 mL/min (>60); Est Glom Filt Rate - Afr Amer 141 mL/min (>60); Estimated Creatinine Clearance 51.37 ml/min; Glucose 156 mg/dL (74-106); Potassium 3.5 mmol/L (3.5-5.1); Sodium Level 138 mmol/L (136-145)
--- NOTE | 2020-12-30 11:42 | PCM.PN.BLA ---
Progress Note Afebrile VSS-the blood pressures are now coming under better control and his blood pressure this a.m. is 142/67. Heart rate is within normal limits. Coreg dose was increased yesterday to 12.5 mg p.o. twice daily. Maintaining appropriate oxygen saturation on RA Oral intake is so-so Discussed with nursing - no problems that need addressed Reviewed the PT/OT/ST notes Medication list reviewed. All lab was personally reviewed. CBC continues to show anemia with a hemoglobin of 11.4 and leukopenia with a white blood cell count of 3.3. Platelets are within normal limits today 166,000. Creatinine is stable at 0.7 and the BUN is 16. Potassium is mildly decreased at 3.5. The blood sugar record was reviewed and the blood sugars are under excellent control. ED told me today that his cough is nearly gone! He is very happy about this. He now has some insight into why he is coughing chronically. I suspect the dysphagia predated the recent CVA. Physical Exam Const alert, oriented x3 and no apparent distress Constitutional Narrative: mood is more stable and he is not having angry outbursts.......he is much less labile since the Sertraline was started. General Appearance: cooperative and comfortable Chest Chest: symmetrical chest wall rise Resp clear to auscultation bilaterally Effort and Inspection: able to speak in complete sentences Cardio regular rate, regular rhythm and no gallops GI normal to inspection, nondistended, normoactive bowel sounds and soft to palpation Extremity Extremity Narrative: He has pitting edema of both ankles but this is under better control with the addition of ABELARDO hose. Skin General Skin Exam: no breakdown Rashes: no rashes Neuro Neuro Narrative: the hypertonicity and pain in the left calf has resolved with the addition of Gabapentin to his drug regimen. He also is not c/o L hip pain any longer. I think the pain is radicular. I can now wintres a Ramni test and he does not c/o pain. Assessment & Plan Assessment/Plan (1) Oropharyngeal dysphagia: (2) Physical debility: (3) Radicular leg pain: (4) Ischemic cerebrovascular accident (CVA): (5) Pseudobulbar affect: PLAN: 1. Continue therapy 2. Reminded him he needs to do his swallowing exercises several times a day if he expects to get off thickened liquids 3. continue the Sertraline at the current dose 4. Continue the Gabapentin for the radicular pain in the leg. Visit Charges Inpatient E&M: 90567 Subs Hosp L2
[2020-12-30 13:58] VITALS: BMI 44.2
[2020-12-30 16:25] VITALS: BP 145/58; PULSE 65
[2020-12-30] MEDS: metFORMIN HCl 500 MG Tablet PO (16:26)
[2020-12-30] MEDS: Tamsulosin HCl 0.4 MG Capsule PO (16:26)
[2020-12-30 20:39] VITALS: PULSE 65; RESP 16; TEMP 36.6; O2SAT 96
[2020-12-30 22:12] VITALS: BP 127/51; PULSE 68
[2020-12-30] MEDS: Atorvastatin Calcium 40 MG Tablet PO (22:14)
[2020-12-30] MEDS: MELATONIN 3 MG TABLET PO (22:14)
[2020-12-30 22:46] LABS: Bedside Glucose 149 mg/dL (70-110)
[2020-12-31] MEDS: Enoxaparin 40 MG/0.4 ML Syringe SC (06:04)
[2020-12-31] MEDS: Nystatin Powder 15gm Bottle 1 APPLIC TOPICAL ×2 (06:04→21:19)
[2020-12-31] MEDS: Menthol/Lanolin/Calamine/Znox 113 GM Tube 1 APPLIC TOPICAL ×2 (06:05→21:19)
[2020-12-31 06:25] LABS: Bedside Glucose 126 mg/dL (70-110)
[2020-12-31] MEDS: Sertraline 50 MG Tablet PO (07:47)
[2020-12-31] MEDS: Carvedilol 12.5 MG Tablet PO ×2 (07:47→17:00)
[2020-12-31] MEDS: Clopidogrel Bisulfate 75 MG Tablet PO (07:47)
[2020-12-31] MEDS: amLODIPine 10 MG Tablet PO (07:47)
[2020-12-31] MEDS: Aspirin E.C. 81 MG Tablet PO (07:47)
[2020-12-31] MEDS: Ipratropium Bromide 0.06% NASAL SPRAY 2 SPRAY NASAL ×2 (07:48→21:18)
[2020-12-31] MEDS: Pregabalin 25 MG Capsule PO ×2 (07:52→21:19)
[2020-12-31 08:31] VITALS: BP 137/63; PULSE 68; RESP 20; TEMP 36.7; O2SAT 95
--- NOTE | 2020-12-31 14:24 | CASEMGMT ---
Social Work Referrals made to [facility] and [facility]. Will await acceptance/denial. Kristen Guzman, CONCRETE CRAFTSMAN SALES TECHNICIAN HOME THEATER
--- NOTE | 2020-12-31 14:50 | PCM.PN.BLA ---
Progress Note Afebrile VSS-the last 2 blood pressures have been below goal. Maintaining appropriate oxygen saturation on RA Oral intake is marginal Discussed with nursing - no problems that need addressed Reviewed the PT/OT/ST notes Medication list reviewed. Blood sugars are in excellent control. Assessment & Plan Assessment/Plan (1) Physical debility: PLAN: He is making progress in therapy. Will continue. (2) Ischemic cerebrovascular accident (CVA): PLAN: continue education regarding RF management to decrease the likelihood he will have another CVA (3) Oropharyngeal dysphagia: PLAN: He is now doing his swallowing exercises but, he argues with the ST everyday about why his liquids need to be thickened. Short term memory is poor. (4) Cognitive dysfunction: PLAN: Continue working with ST. His was handling his medications prior to the CVA and also handling finances......there may have been a cognition problem prior to the CVA. (5) Left hemiparesis: (6) Pancytopenia: PLAN: The etiology of this is not clear. The PLT's are now WNL but, low normal. He will need to see a butadiene converter utility operator following DC. (7) Obstructive sleep apnea: PLAN: Wears his CPAP faithfully (8) Diabetes mellitus type 2 in obese: PLAN: Well controlled (9) Chronic cough: PLAN: I rarely hear him cough since the Atrovent nasal spray and thickened liquids were started. (10) Radicular pain of right lower extremity: PLAN: He is no longer c/o this since he is taking Lyrica Visit Charges Inpatient E&M: 29521 Subs Hosp L2
[2020-12-31 16:41] VITALS: BMI 44.2
[2020-12-31] MEDS: metFORMIN HCl 500 MG Tablet PO (17:00)
[2020-12-31] MEDS: Tamsulosin HCl 0.4 MG Capsule PO (17:00)
[2020-12-31 20:10] VITALS: BP 142/70; PULSE 67; RESP 16; TEMP 36.9; O2SAT 98
[2020-12-31 20:27] VITALS: BP 135/62; PULSE 66
[2020-12-31 20:32] LABS: Bedside Glucose 144 mg/dL (70-110)
[2020-12-31] MEDS: Atorvastatin Calcium 40 MG Tablet PO (21:19)
[2020-12-31] MEDS: MELATONIN 3 MG TABLET PO (21:19)
[2021-01-01 02:24] VITALS: BMI 44.2
--- NOTE | 2021-01-01 03:56 | NURSING ---
REVIEWED AND AGREE WITH ZIPPER SLIDE ATTACHER'S FUNCTIONAL ASSESSMENT AND HANDOFF CHARTING.
[2021-01-01 04:53] VITALS: BP 145/67; PULSE 67
[2021-01-01] MEDS: Enoxaparin 40 MG/0.4 ML Syringe SC (04:57)
[2021-01-01 04:58] VITALS: BP 145/67; PULSE 67
[2021-01-01] MEDS: hydrALAZINE 10 MG Tablet PO ×2 (04:58→15:57)
[2021-01-01] MEDS: Menthol/Lanolin/Calamine/Znox 113 GM Tube 1 APPLIC TOPICAL ×2 (04:59→20:56)
[2021-01-01] MEDS: Nystatin Powder 15gm Bottle 1 APPLIC TOPICAL ×2 (04:59→20:57)
[2021-01-01 06:11] LABS: Bedside Glucose 132 mg/dL (70-110)
[2021-01-01] MEDS: Aspirin E.C. 81 MG Tablet PO (07:43)
[2021-01-01] MEDS: Carvedilol 12.5 MG Tablet PO ×2 (07:43→16:00)
[2021-01-01] MEDS: Potassium Chloride Oral Tablet 20 MEQ PO (07:43)
[2021-01-01] MEDS: Ipratropium Bromide 0.06% NASAL SPRAY 2 SPRAY NASAL ×2 (07:43→20:55)
[2021-01-01 07:44] VITALS: BP 133/65; PULSE 67; RESP 20; TEMP 37.1; O2SAT 98
[2021-01-01] MEDS: Clopidogrel Bisulfate 75 MG Tablet PO (07:44)
[2021-01-01] MEDS: amLODIPine 10 MG Tablet PO (07:44)
[2021-01-01] MEDS: Pregabalin 25 MG Capsule PO ×2 (07:44→20:56)
[2021-01-01] MEDS: Sertraline 50 MG Tablet PO (07:44)
[2021-01-01 11:12] VITALS: BMI 44.2
[2021-01-01 15:57] VITALS: BP 167/82; PULSE 68
[2021-01-01] MEDS: Tamsulosin HCl 0.4 MG Capsule PO (17:24)
[2021-01-01] MEDS: metFORMIN HCl 500 MG Tablet PO (17:24)
[2021-01-01] MEDS: Acetaminophen 325 MG Tablet 650 MG PO (17:26)
[2021-01-01 20:05] VITALS: BP 126/63; PULSE 68; RESP 18; TEMP 36.9; O2SAT 93
[2021-01-01 20:12] LABS: Bedside Glucose 127 mg/dL (70-110)
[2021-01-01] MEDS: MELATONIN 3 MG TABLET PO (20:56)
[2021-01-01] MEDS: Atorvastatin Calcium 40 MG Tablet PO (20:56)
[2021-01-02 00:39] VITALS: BMI 44.2
[2021-01-02] MEDS: Menthol/Lanolin/Calamine/Znox 113 GM Tube 1 APPLIC TOPICAL ×2 (06:09→21:51)
[2021-01-02] MEDS: Nystatin Powder 15gm Bottle 1 APPLIC TOPICAL ×2 (06:09→21:50)
[2021-01-02] MEDS: Enoxaparin 40 MG/0.4 ML Syringe SC (06:09)
[2021-01-02 06:26] LABS: Bedside Glucose 118 mg/dL (70-110)
[2021-01-02 08:20] VITALS: BP 137/69; PULSE 69; RESP 16; TEMP 36.7; O2SAT 96
[2021-01-02] MEDS: Sertraline 50 MG Tablet PO (08:51)
[2021-01-02] MEDS: Clopidogrel Bisulfate 75 MG Tablet PO (08:51)
[2021-01-02] MEDS: Pregabalin 25 MG Capsule PO ×2 (08:51→21:51)
[2021-01-02] MEDS: amLODIPine 10 MG Tablet PO (08:51)
[2021-01-02] MEDS: Ipratropium Bromide 0.06% NASAL SPRAY 2 SPRAY NASAL ×2 (08:52→21:51)
[2021-01-02] MEDS: Potassium Chloride Oral Tablet 20 MEQ PO (08:52)
[2021-01-02] MEDS: Carvedilol 12.5 MG Tablet PO ×2 (08:52→18:08)
[2021-01-02] MEDS: Aspirin E.C. 81 MG Tablet PO (08:52)
[2021-01-02 14:48] VITALS: BMI 44.2
[2021-01-02] MEDS: metFORMIN HCl 500 MG Tablet PO (18:08)
[2021-01-02] MEDS: Tamsulosin HCl 0.4 MG Capsule PO (18:08)
[2021-01-02 21:15] LABS: Bedside Glucose 136 mg/dL (70-110)
[2021-01-02 21:30] VITALS: PULSE 60; RESP 16; O2SAT 94; BMI 44.2
[2021-01-02 21:41] VITALS: BP 124/54; PULSE 60; RESP 16; TEMP 36.4; O2SAT 94
[2021-01-02 21:50] VITALS: BP 140/69; PULSE 69
[2021-01-02] MEDS: MELATONIN 3 MG TABLET PO (21:51)
[2021-01-02] MEDS: Atorvastatin Calcium 40 MG Tablet PO (21:51)
--- NOTE | 2021-01-03 01:26 | NURSING ---
Reviewed and agree with CORK SORTER documentation and assessment charting.
[2021-01-03] MEDS: Menthol/Lanolin/Calamine/Znox 113 GM Tube 1 APPLIC TOPICAL ×2 (05:56→20:37)
[2021-01-03] MEDS: Nystatin Powder 15gm Bottle 1 APPLIC TOPICAL ×2 (05:57→20:37)
[2021-01-03] MEDS: Enoxaparin 40 MG/0.4 ML Syringe SC (05:57)
[2021-01-03 05:58] VITALS: BP 161/77; PULSE 67
[2021-01-03] MEDS: hydrALAZINE 10 MG Tablet PO (05:58)
[2021-01-03 06:11] LABS: Bedside Glucose 127 mg/dL (70-110)
[2021-01-03 07:17] VITALS: PULSE 64; RESP 16; TEMP 36.4; O2SAT 95
[2021-01-03] MEDS: Pregabalin 25 MG Capsule PO ×2 (07:59→20:38)
[2021-01-03] MEDS: Sertraline 50 MG Tablet PO (08:00)
[2021-01-03] MEDS: Carvedilol 12.5 MG Tablet PO ×2 (08:00→17:02)
[2021-01-03] MEDS: Potassium Chloride Oral Tablet 20 MEQ PO (08:00)
[2021-01-03] MEDS: Clopidogrel Bisulfate 75 MG Tablet PO (08:02)
[2021-01-03] MEDS: Aspirin E.C. 81 MG Tablet PO (08:02)
[2021-01-03] MEDS: amLODIPine 10 MG Tablet PO (08:03)
[2021-01-03] MEDS: Ipratropium Bromide 0.06% NASAL SPRAY 2 SPRAY NASAL ×2 (08:03→20:38)
[2021-01-03 15:42] VITALS: BMI 44.2
[2021-01-03] MEDS: metFORMIN HCl 500 MG Tablet PO (17:01)
[2021-01-03] MEDS: Tamsulosin HCl 0.4 MG Capsule PO (17:01)
[2021-01-03 19:23] VITALS: BP 153/81; PULSE 69; RESP 17; TEMP 36.3; O2SAT 99
[2021-01-03 20:15] VITALS: PULSE 69; RESP 17; O2SAT 99; BMI 44.2
[2021-01-03] MEDS: MELATONIN 3 MG TABLET PO (20:38)
[2021-01-03] MEDS: Atorvastatin Calcium 40 MG Tablet PO (20:38)
[2021-01-03 20:56] LABS: Bedside Glucose 125 mg/dL (70-110)
--- NOTE | 2021-01-04 03:07 | NURSING ---
REVIEWED AND AGREE WITH FUNERAL CAR DRIVER'S FUNCTIONAL ASSESSMENT AND HANDOFF CHARTNG.
[2021-01-04] MEDS: Nystatin Powder 15gm Bottle 1 APPLIC TOPICAL ×2 (04:55→20:49)
[2021-01-04] MEDS: Enoxaparin 40 MG/0.4 ML Syringe SC (04:55)
[2021-01-04] MEDS: Menthol/Lanolin/Calamine/Znox 113 GM Tube 1 APPLIC TOPICAL ×2 (04:56→20:48)
[2021-01-04 07:46] LABS: Bedside Glucose 137 mg/dL (70-110)
[2021-01-04 07:48] VITALS: BP 138/63; PULSE 71; RESP 16; TEMP 37; O2SAT 95
[2021-01-04] MEDS: Carvedilol 12.5 MG Tablet PO ×2 (07:50→17:12)
[2021-01-04] MEDS: Ipratropium Bromide 0.06% NASAL SPRAY 2 SPRAY NASAL ×2 (07:50→20:47)
[2021-01-04] MEDS: Sertraline 50 MG Tablet PO (07:50)
[2021-01-04] MEDS: amLODIPine 10 MG Tablet PO (07:50)
[2021-01-04] MEDS: Pregabalin 25 MG Capsule PO ×2 (07:50→20:47)
[2021-01-04] MEDS: Clopidogrel Bisulfate 75 MG Tablet PO (07:50)
[2021-01-04] MEDS: Aspirin E.C. 81 MG Tablet PO (07:50)
[2021-01-04] MEDS: Potassium Chloride Oral Tablet 20 MEQ PO (07:50)
--- NOTE | 2021-01-04 10:53 | CASEMGMT ---
Addendum entered by Kristen Guzman 01/04/21 13:31: [facility] cannot accept pt. Confirmed with [facility] acceptance on 01/08. Pt agreeable to [facility]. 7000 completed. Original Note: Social Work IDT met with patient for Team meeting. Attempted to call dtr but unavailable d/t to time change as she lives in [place]. Discussed patient's progress in therapy and nursing. Explained pt DC 01/08 - [facility] accepted pt and awaiting return phone call from [facility]. Will continue to follow. ASA Fuentes TAPER AND FLOATER
[2021-01-04 14:07] VITALS: BMI 44.2
[2021-01-04] MEDS: Tamsulosin HCl 0.4 MG Capsule PO (17:12)
[2021-01-04] MEDS: metFORMIN HCl 500 MG Tablet PO (17:12)
--- NOTE | 2021-01-04 18:49 | PN_ITS ---
Subjective Subjective Patient seen, examined on IDT rounds. He is doing well with PT. Progressing in ST, but needs continued improvement. Left arm flaccid, swollen. Plan on discharging to SNF. Objective Data Objective Data Vital Signs: Vital Signs Temp Pulse Resp BP Pulse Ox 98.6 F 71 16 138/63 H 95 01/04/21 07:48 01/04/21 07:48 01/04/21 07:48 01/04/21 07:48 01/04/21 07:48 Oxygen Delivery Method Room Air Weight: 90.4 kg Body Mass Index (BMI) 44.2 Intake & Output: Intake and Output for Last 24 Hours 01/02/21 01/03/21 01/04/21 23:59 23:59 23:59 Intake Total 920 / 920 500 / 500 360 / 360 Output Total 200 / 200 Balance 720 / 720 500 / 500 360 / 360 Lab / Micro Data Result Diagrams: 12/30/20 07:50 12/30/20 07:50 Labs: Laboratory Results - last 24 hr 01/03/21 20:51: POC Glucose 125 H 01/04/21 07:34: POC Glucose 137 H Physical Exam Const alert and oriented x3 General Appearance: cooperative HEENT normocephalic Eyes PERRL and EOMs intact bilaterally Neck supple, no JVD and no carotid bruits Resp normal respiratory effort, normal air movement and clear to auscultation bilaterally Cardio regular rate and regular rhythm GI normal to inspection, nondistended, normoactive bowel sounds, non-tender and non-distended Extremity normal capillary refill General Extremity: edema left upper extremity Skin no rashes or lesions noted General Skin Exam: no breakdown Neuro Neuro Narrative: Flaccid left uppcer extremity. Psych affect normal Appearance: appropriate Assessment & Plan Assessment/Plan (1) Debility: (2) Cerebral vascular accident: (3) Hypertension: (4) Hyperlipidemia: (5) HTN (hypertension): (6) Cough: (7) Rhinitis: (8) Insomnia: (9) Diabetes mellitus: (10) Tinea corporis: (11) Hypokalemia: (12) Neuropathic pain: (13) Depression: (14) Benign prostatic hyperplasia: PLAN: 75 year old male with below past medical history hospitalized for stroke with left hemiplegia, admitted to [facility] for greater than 3 hours daily of rehabilitatio, strengthening, prior to discharge. * Debility - PT/OT. * Cognition - ST. * Pain - Tylenol 650mg Q6H PRN. * Bowel - Senna/colace 2 tablets twice daily, MOM 30ML x 1 dose PRN, Dulcolax 10mg MI daily PRN. * DVT prophylaxis - Lovenox 40mg sc daily. * Hypertension - Coreg 12.5mg twice daily, Amlodipine 10mg daily, Hydralazine 10mg Q4H PRN. * Stroke, left hemiplegia - Aspirin 81mg daily, Plavix 75mg daily. * Hyperlipidemia - Atorvastatin 40mg QHS. * Cough - Guaifenesin 10ml Q6H PRN. * Rhinitis - Atrovent 2 sprays twice daily. * Insomnia - Melatonin 3mg QHS. * Skin irritation - Calmoseptine topical twice daily. * Diabetes Mellitus II - Metformin 500mg 1700. * Tinea Corporis - Nystatin powder topical twice daily. * Hypokalemia - KCL 20meq daily. * Neuropathic pain - Lyrica 25mg twice daily. * Depression - Sertraline 50mg daily. * BPH - Tamsulosin 0.4mg daily. Capacity Capacity Assessment Tool Can the patient make a choice & communicate that choice?: Yes Can the patient understand benefits, risks and alternatives?: Yes Can the patient make a logical, rational choice?: Yes Is the choice the patient makes consistent w/ their values?: Yes Is there an impending, emergent risk to the patient?: No Does the patient have an Advance Directive?: Yes Is there a Surrogate Available?: Yes i.e. HCPOA: Yes i.e. close relative (spouse, child, parent, sibling)?: Yes
[2021-01-04 19:33] VITALS: BP 120/63; PULSE 67; RESP 17; TEMP 36.6; O2SAT 94
[2021-01-04 20:01] VITALS: RESP 18
[2021-01-04] MEDS: Atorvastatin Calcium 40 MG Tablet PO (20:48)
[2021-01-04] MEDS: MELATONIN 3 MG TABLET PO (20:48)
[2021-01-04 21:20] VITALS: BMI 44.2
[2021-01-04 21:35] LABS: Bedside Glucose 145 mg/dL (70-110)
[2021-01-05 06:18] LABS: Absolute Lymphocyte Count 0.91 X10^3/uL (0.83-4.51); Absolute Neutrophil Count 2.4 X10^3/uL (2.0-7.7); Basophil# 0.01 X10^3/uL; Basophil% 0.3 % (0-1); Eosinophil# 0.09 X10^3/uL; Eosinophils% 2.4 % (0-5); Hematocrit 33.7 % (40-54); Hemoglobin 11.1 g/dL (13.0-16.5); Lymphocyte # 0.91 X10^3/ul (0.83-4.51); Lymphocyte % 24.4 % (19-41); Mean Corp Hgb Conc 32.9 g/dL (32-36); Mean Corpuscular Hgb 29.8 pg (27.0-32.0); Mean Corpuscular Volume 90.3 fL (80-94); Mean Platelet Vol. 10.1 fl (6.2-12.0); Monocyte# 0.29 X10^3/uL; Monocyte% 7.8 % (0-10); NRBC Flagged by Analyzer 0 % (0-5); Neutrophil # 2.41 X10^3/uL (2.7-7.7); Neutrophil % 64.6 % (47-70); Platelet Count 154 K/mm3 (150-450); RBC Distribution Width CV 13.2 % (11.6-14.6); RBC Distribution Width SD 43.7 fl (35.1-43.9); Red Blood Count 3.73 M/mm3 (4.6-6.2); White Blood Count 3.7 K/mm3 (4.4-11.0)
[2021-01-05 06:33] LABS: Anion Gap 9 (5-15); BUN 17 mg/dL (7-18); BUN/Creat Ratio 26.4 RATIO (10-20); Calcium,Total 8.6 mg/dL (8.5-10.1); Chloride 106 mmol/L (98-107); Creatinine, Serum 0.64 mg/dL (0.70-1.30); EST Glomerular Filtration Rate 128 mL/min (>60); Est Glom Filt Rate - Afr Amer 155 mL/min (>60); Estimated Creatinine Clearance 51.37 ml/min; Glucose 135 mg/dL (74-106); Potassium 3.7 mmol/L (3.5-5.1); Sodium Level 140 mmol/L (136-145)
[2021-01-05 06:50] LABS: Bedside Glucose 122 mg/dL (70-110)
[2021-01-05] MEDS: Enoxaparin 40 MG/0.4 ML Syringe SC (06:52)
[2021-01-05] MEDS: Menthol/Lanolin/Calamine/Znox 113 GM Tube 1 APPLIC TOPICAL ×2 (06:55→21:51)
[2021-01-05] MEDS: Nystatin Powder 15gm Bottle 1 APPLIC TOPICAL ×2 (06:55→21:51)
[2021-01-05 07:30] VITALS: BP 131/53; PULSE 62; RESP 18; TEMP 36.4; O2SAT 97
[2021-01-05] MEDS: Aspirin E.C. 81 MG Tablet PO (07:54)
[2021-01-05] MEDS: Potassium Chloride Oral Tablet 20 MEQ PO (07:54)
[2021-01-05] MEDS: Sertraline 50 MG Tablet PO (07:54)
[2021-01-05] MEDS: Clopidogrel Bisulfate 75 MG Tablet PO (07:54)
[2021-01-05] MEDS: amLODIPine 10 MG Tablet PO (07:54)
[2021-01-05] MEDS: Pregabalin 25 MG Capsule PO ×2 (07:54→21:48)
[2021-01-05] MEDS: Carvedilol 12.5 MG Tablet PO ×2 (07:54→17:20)
[2021-01-05] MEDS: Ipratropium Bromide 0.06% NASAL SPRAY 2 SPRAY NASAL ×2 (07:54→21:49)
--- NOTE | 2021-01-05 10:31 | PCM.PN.BLA ---
Progress Note Afebrile VSS-blood pressure is controlled. Maintaining appropriate oxygen saturation on RA Oral intake is good The blood sugar record was reviewed and the blood sugars are under excellent control. Discussed with nursing - no problems that need addressed Reviewed the PT/OT/ST notes Medication list reviewed. Lab from today was personally reviewed. White blood cell count remains low at 3.7 with an unremarkable differential. The hemoglobin is stable at 11.1 and the platelet count is stable at 154,000. Serum is 3.7 and the sodium is 140. BUN is 17 and the creatinine is 0.64 which is stable. Medium is 2.0 and calcium is within normal limits. Physical Exam Const alert, oriented x3, no apparent distress and well nourished Constitutional Narrative: mood is more stable and he is not having angry outbursts.......he is much less labile since the Sertraline was started. General Appearance: cooperative, comfortable and well developed Nutritional Appearance: morbidly obese HEENT normocephalic, head/scalp atraumatic and moist oral mucous membranes Eyes PERRL, EOMs intact bilaterally, conjunctivae normal, no scleral icterus and normal visual garland by confrontation Eyes Narrative: no gaze preference Neck No nuchal rigidity, no lymphadenopathy, supple and no carotid bruits Neck Narrative: The neck is short and thick and very difficult to assess for JVD. General: trachea midline; Negative for lymphadenopathy Chest Chest: symmetrical chest wall rise Resp normal respiratory effort, no use of accessory muscles and clear to auscultation bilaterally Resp Narrative: Diminished due to body habitus. Not tachypneic and no accessory muscle use. Effort and Inspection: able to speak in complete sentences Cardio regular rate, regular rhythm, S1 normal heart sound, S2 normal heart sound, no murmurs, no rub and no gallops Cardio Narrative: no ectopy GI GI Narrative: obese, soft, ND, NT, no guarding with palpation, normal BS's Back/Spine Back/Spine Narrative: He has not complained of back or leg pain since the Lyrica was started. Extremity no calf tenderness Extremity Narrative: He has pitting edema of both ankles but this is under better control with the addition of ABELARDO hose. I suspect the edema is due to chronic venous insufficiency but, with the WILLIAM can not rule out pulmonary HTN as a contributing factor. General Extremity: Negative for clubbing or cyanosis Skin Skin Narrative: No rashes, no skin breakdown. General Skin Exam: no breakdown and ecchymosis Rashes: no rashes Neuro oriented x3 Neuro Narrative: the hypertonicity and pain in the left calf has resolved with the addition of Lyrica to his drug regimen. He also is not c/o L hip pain any longer. I think the pain is radicular. I can now do a Ramin test and he does not c/o pain. He still has flaccid paralysis of the LUE but he is moving the LLE and can no move his left foot forward while ambulating without assistance. Psych Psych Narrative: He is less impulsive and the moods are less labile since the addition of Sertraline to his drug regimen. He is more cooperative and less argumentative. Appearance: appropriate Assessment & Plan Assessment/Plan (1) Debility: (2) Ischemic cerebrovascular accident (CVA): (3) Cerebral vascular accident: (4) Left hemiparesis: (5) Cognitive dysfunction: (6) Oropharyngeal dysphagia: (7) Pseudobulbar affect: (8) Pancytopenia: (9) Hypertension: (10) Hyperlipidemia: (11) Cough: (12) Insomnia: (13) Diabetes mellitus: (14) Neuropathic pain: (15) Radicular leg pain: (16) Diabetes mellitus type 2 in obese: (17) HTN (hypertension): PLAN: 1. BMP and CBC without differential in the a.m. 2. Increase the Coreg to 12.5 mg BID 3. continue therapy 4. Plan DC to [facility] on Monday Visit Charges Inpatient E&M: 20251 Subs Hosp L2
[2021-01-05 13:58] VITALS: BMI 44.2
[2021-01-05 17:20] VITALS: BP 153/69; PULSE 63
[2021-01-05] MEDS: hydrALAZINE 10 MG Tablet PO (17:20)
[2021-01-05] MEDS: metFORMIN HCl 500 MG Tablet PO (17:20)
[2021-01-05] MEDS: Tamsulosin HCl 0.4 MG Capsule PO (17:20)
[2021-01-05 20:08] VITALS: PULSE 63; RESP 18; TEMP 36.7; O2SAT 100
[2021-01-05] MEDS: MELATONIN 3 MG TABLET PO (21:48)
[2021-01-05] MEDS: Atorvastatin Calcium 40 MG Tablet PO (21:49)
[2021-01-05 21:50] LABS: Bedside Glucose 108 mg/dL (70-110)
[2021-01-05 21:52] VITALS: BP 112/72; PULSE 65
[2021-01-06 06:00] VITALS: BMI 44.2
[2021-01-06] MEDS: Enoxaparin 40 MG/0.4 ML Syringe SC (06:30)
[2021-01-06] MEDS: Menthol/Lanolin/Calamine/Znox 113 GM Tube 1 APPLIC TOPICAL ×2 (06:30→21:25)
[2021-01-06] MEDS: Nystatin Powder 15gm Bottle 1 APPLIC TOPICAL ×2 (06:31→21:26)
[2021-01-06 07:01] LABS: Bedside Glucose 129 mg/dL (70-110)
[2021-01-06 07:34] VITALS: BP 127/66; PULSE 62; RESP 16; TEMP 36.6; O2SAT 95
[2021-01-06] MEDS: Ipratropium Bromide 0.06% NASAL SPRAY 2 SPRAY NASAL ×2 (07:46→21:21)
[2021-01-06] MEDS: Clopidogrel Bisulfate 75 MG Tablet PO (07:51)
[2021-01-06] MEDS: Pregabalin 25 MG Capsule PO ×2 (07:51→21:21)
[2021-01-06] MEDS: Sertraline 50 MG Tablet PO (07:51)
[2021-01-06] MEDS: Potassium Chloride Oral Tablet 20 MEQ PO (07:51)
[2021-01-06] MEDS: Aspirin E.C. 81 MG Tablet PO (07:51)
[2021-01-06] MEDS: Carvedilol 12.5 MG Tablet PO ×2 (07:51→17:19)
[2021-01-06] MEDS: amLODIPine 10 MG Tablet PO (07:51)
[2021-01-06 13:57] VITALS: BMI 44.2
[2021-01-06 17:19] VITALS: BP 156/80; PULSE 61
[2021-01-06] MEDS: hydrALAZINE 10 MG Tablet PO (17:19)
[2021-01-06] MEDS: Tamsulosin HCl 0.4 MG Capsule PO (17:19)
[2021-01-06] MEDS: metFORMIN HCl 500 MG Tablet PO (17:19)
[2021-01-06] MEDS: Atorvastatin Calcium 40 MG Tablet PO (21:21)
[2021-01-06] MEDS: MELATONIN 3 MG TABLET PO (21:21)
[2021-01-06 21:25] LABS: Bedside Glucose 133 mg/dL (70-110)
[2021-01-06 22:00] VITALS: BP 156/80; PULSE 61; RESP 18; TEMP 36.5; O2SAT 94
[2021-01-07 01:59] VITALS: BMI 44.2
[2021-01-07] MEDS: Enoxaparin 40 MG/0.4 ML Syringe SC (05:57)
[2021-01-07] MEDS: Menthol/Lanolin/Calamine/Znox 113 GM Tube 1 APPLIC TOPICAL ×2 (05:58→20:51)
[2021-01-07] MEDS: Nystatin Powder 15gm Bottle 1 APPLIC TOPICAL ×2 (05:59→20:51)
[2021-01-07 06:46] LABS: Bedside Glucose 116 mg/dL (70-110)
[2021-01-07 07:32] VITALS: BP 133/67; PULSE 65; RESP 16; TEMP 36.8; O2SAT 95
--- NOTE | 2021-01-07 09:15 | CASEMGMT ---
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 Original Note: Social Work Received voicemail from nursing that dtr requesting w/c transport be scheduled. Scheduled w/c transport at 1400 through [facility]. Attempted to call dtr but no voicemail set up. Notified nursing. Kristen Guzman, ASA HENSLEYW
[2021-01-07] MEDS: Pregabalin 25 MG Capsule PO ×2 (11:05→20:52)
[2021-01-07] MEDS: Ipratropium Bromide 0.06% NASAL SPRAY 2 SPRAY NASAL ×2 (11:05→20:51)
[2021-01-07] MEDS: Potassium Chloride Oral Tablet 20 MEQ PO (11:06)
[2021-01-07] MEDS: Sertraline 50 MG Tablet PO (11:06)
[2021-01-07] MEDS: amLODIPine 10 MG Tablet PO (11:06)
[2021-01-07] MEDS: Aspirin E.C. 81 MG Tablet PO (11:06)
[2021-01-07] MEDS: Carvedilol 12.5 MG Tablet PO ×2 (11:06→16:20)
[2021-01-07] MEDS: Clopidogrel Bisulfate 75 MG Tablet PO (11:09)
[2021-01-07 12:47] VITALS: BMI 44.2
[2021-01-07] MEDS: Tamsulosin HCl 0.4 MG Capsule PO (16:20)
[2021-01-07] MEDS: metFORMIN HCl 500 MG Tablet PO (16:20)
--- NOTE | 2021-01-07 16:38 | TREXTCAR_ITS ---
Diet 12/17/20 18:23 Diet: Cardiac: Calorie-Controlled Food consistency:: Regular Liquid Consistency:: [place]/Mildly Thick Dietary Modifications:: Consistent Carbohydrate Is pt able to select menu?: No Diet Comments: distant supervision; no straws How many daily calories?: 1600 calorie Routine Orders/Code Status Enema Type: Fleetz Enema Frequency: Daily PRN Suppository Type: Dulcolax 10mg Suppository Frequency: Daily PRN O2 Liters per Minute: 1-2 O2 Frequency: PRN Keep PO Greater than or Equal to (%): 90 Routine Lab Work: CBC (1 week) and BMP (1 week) Code Status: DNRCC-A (No intubation) Wound(s) coccyx: Wound Type: Pressure Injury Therapies Weight Bearing: Full weight bearing Extremity Affected:: Left Upper Physical Therapy: Eval and Treat Occupational Therapy: Eval and Treat Speech Therapy: Eval and Treat Problem/Diagnosis (1) Debility: Status: Acute (2) Ischemic cerebrovascular accident (CVA): Status: Acute Comment: BL basal ganglia and the R paramedian joseph. Multifocal infarcts in the vascular territory of the right middle cerebral artery including the cortex of the right parietal and right occipital lobes. (3) Cerebral vascular accident: Status: Deleted (4) Left hemiparesis: Status: Acute (5) Cognitive dysfunction: Status: Acute (6) Oropharyngeal dysphagia: Status: Acute (7) Pseudobulbar affect: Status: Acute (8) Pancytopenia: Status: Acute (9) Hypertension: Status: Deleted (10) Hyperlipidemia: Status: Deleted (11) HTN (hypertension): Status: Chronic (12) Cough: Status: Resolved Comment: resolved with Atrovent nasal spray and thickened liquids (13) Rhinitis: Status: Chronic (14) Insomnia: Status: Resolved (15) Diabetes mellitus: Status: Deleted (16) Tinea corporis: Status: Acute (17) Hypokalemia: Status: Resolved (18) Neuropathic pain: Status: Deleted (19) Depression: Status: Acute (20) Benign prostatic hyperplasia: Status: Acute (21) Radicular leg pain: Status: Acute Comment: no longer c/o this after the addition of Gabapentin to the drug regimen (22) H/O aortic valve replacement: Status: Acute Comment: Bioprosthetic-2019 (23) Diabetes mellitus type 2 in obese: Status: Chronic Comment: well controlled (24) Obstructive sleep apnea: Status: Acute Comment: Wears CPAP (25) Ascending aorta dilation: Status: Chronic (26) Carotid stenosis, bilateral: Status: Chronic Comment: 50% on the right and less than 30% on the left (27) Chronic sphenoidal sinusitis: Status: Chronic Comment: Right sphenoid sinus (28) Coronary artery disease: Status: Chronic (29) Low HDL (under 40): Status: Acute (30) Morbid obesity: Status: Acute (31) Hyperlipidemia: Status: Acute Allergies/Procedures Done in Hospital Allergies losartan Allergy (Verified 12/16/20 19:27) Other Procedures: - (Modified barium swallow) Type of Care/Length of Stay Estimated LOS: Convalescent Care Less Than 30 days Type of Care Needed: Skilled Rehab Potential: Fair Prognosis: Fair Additional Orders/Day of Discharge H&P will serve as current which was dated: 12/17/20 Day of Discharge: 01/08/21 Dietary and Speech Recommendations Dietitian Recommendations/Changes: Continue 1600 calorie/cardiac; consistent carbohydrate diet with consistency as per FINAL INSPECTION SUPERVISOR--currently regular solids with nectar/mildly-thick liquids. Diet education as pt willing. Validate current weight on follow-up ?? accuracy of 12/30 weight indicating~23 Kg wt loss since admit weight. Follow Up Care Please Follow Up With: Baljit Flynn When: after discharge from SNF Please Follow Up With: Shamika Loo CASTING TRUCKER- Neurology Discharge Plan Admission Admit Date/Time: 12/16/20 18:30 Primary Reason for Your Visit: Debility secondary to ischemic CVA Attending Provider: Ursula Louie Primary Care Provider: Care Physician,No Primary Discharge Orders/Prescriptions Prescriptions: New acetaminophen [Tylenol] 325 mg Tablet 650 mg PO Q6H PRN PRN (Reason: Pain Score 1-10) Qty: 0 RF: 0 carvedilol 12.5 mg Tablet 12.5 mg PO BIDCM Qty: 0 RF: 0 amlodipine 10 mg Tablet 10 mg PO DAILY Qty: 0 RF: 0 bisacodyl 10 mg Suppository 10 mg IL .PRN X 1 PRN (Reason: Constipation) Qty: 0 RF: 0 guaifenesin 100 mg/5 mL Liquid 200 mg PO Q6H PRN PRN (Reason: COUGH) Qty: 0 RF: 0 magnesium hydroxide 400 mg/5 mL Suspension 30 ml PO .PRN X 1 PRN (Reason: Constipation) Qty: 0 RF: 0 ipratropium bromide 42 mcg (0.06 %) [place],Non-Aerosol 2 spray NASAL BID Qty: 0 RF: 0 metformin 500 mg Tablet 500 mg PO 1700 Qty: 0 RF: 0 melatonin 3 mg Tablet 3 mg PO QHS Qty: 0 RF: 0 nystatin [Nyamyc] 100,000 unit/gram Powder 1 applic topical BID@0600,2200 Qty: 0 RF: 0 menthol-zinc oxide [Calmoseptine] 0.44-20.6 % Ointment 1 applic topical BID@0600,2200 Qty: 0 RF: 0 potassium chloride [Klor-Con M20] 20 mEq Tablet,Er Particles/Crystals 20 meq PO DAILYCM Qty: 0 RF: 0 pregabalin 25 mg Capsule 25 mg PO BID Qty: 60 RF: 0 sertraline 50 mg Tablet 50 mg PO DAILY Qty: 0 RF: 0 Continued atorvastatin 40 mg Tablet 40 mg PO QHS RF: 0 aspirin 81 mg Tablet,Delayed Release (Dr/Ec) 81 mg PO DAILY RF: 0 tamsulosin 0.4 mg capsule 0.4 mg PO DAILY RF: 0 Repatha Syringe 140 mg/mL syringe 140 mg SUBCUT QWEEK RF: 0 Discontinued amlodipine 5 mg Tablet 5 mg PO DAILY RF: 0 carvedilol 3.125 mg tablet 3.125 mg PO BID RF: 0 clopidogrel 75 mg PO/SL DAILY RF: 0 Referrals / Follow Up: Care Physician,No Primary [Primary Care Provider] - Disposition Disposition (needs filled in before D/C Order can be placed): Intermediate Facility
--- NOTE | 2021-01-07 17:05 | PCM.DC.SUM ---
Providers Date of Admission: 12/16/20 Date of Discharge: 01/08/21 Primary Care Physician: Dr. Nathanael Smiley Reason For Visit: STROKE Diagnosis Discharge Diagnosis (1) Debility: Status: Acute Code(s): R53.81 - Other malaise (2) Ischemic cerebrovascular accident (CVA): Status: Acute Code(s): I63.9 - Cerebral infarction, unspecified (3) Cerebral vascular accident: Status: Deleted Code(s): I63.9 - Cerebral infarction, unspecified (4) Left hemiparesis: Status: Acute Code(s): G81.94 - Hemiplegia, unspecified affecting left nondominant side (5) Cognitive dysfunction: Status: Acute Code(s): F09 - Unspecified mental disorder due to known physiological condition (6) Oropharyngeal dysphagia: Status: Acute Code(s): R13.12 - Dysphagia, oropharyngeal phase (7) Pseudobulbar affect: Status: Acute Code(s): F48.2 - Pseudobulbar affect (8) Pancytopenia: Status: Acute Code(s): D61.818 - Other pancytopenia (9) Hypertension: Status: Deleted Code(s): I10 - Essential (primary) hypertension (10) Hyperlipidemia: Status: Deleted Code(s): E78.5 - Hyperlipidemia, unspecified (11) HTN (hypertension): Code(s): I10 - Essential (primary) hypertension (12) Cough: Status: Resolved Code(s): R05 - Cough (13) Rhinitis: Code(s): J31.0 - Chronic rhinitis (14) Insomnia: Status: Resolved Code(s): G47.00 - Insomnia, unspecified (15) Diabetes mellitus: Status: Deleted Code(s): E11.9 - Type 2 diabetes mellitus without complications (16) Tinea corporis: Status: Resolved Code(s): B35.4 - Tinea corporis (17) Hypokalemia: Status: Resolved Code(s): E87.6 - Hypokalemia (18) Neuropathic pain: Status: Deleted Code(s): M79.2 - Neuralgia and neuritis, unspecified (19) Depression: Status: Acute Code(s): F32.9 - Major depressive disorder, single episode, unspecified (20) Benign prostatic hyperplasia: Code(s): N40.0 - Benign prostatic hyperplasia without lower urinary tract symptoms (21) Radicular leg pain: Status: Acute Code(s): M54.10 - Radiculopathy, site unspecified (22) H/O aortic valve replacement: Code(s): Z95.2 - Presence of prosthetic heart valve (23) Diabetes mellitus type 2 in obese: Code(s): E11.69 - Type 2 diabetes mellitus with other specified complication; E66.9 - Obesity, unspecified (24) Obstructive sleep apnea: Code(s): G47.33 - Obstructive sleep apnea (adult) (pediatric) (25) Ascending aorta dilation: Code(s): I77.810 - Thoracic aortic ectasia (26) Carotid stenosis, bilateral: Code(s): I65.23 - Occlusion and stenosis of bilateral carotid arteries (27) Chronic sphenoidal sinusitis: Code(s): J32.3 - Chronic sphenoidal sinusitis (28) Coronary artery disease: Code(s): I25.10 - Atherosclerotic heart disease of [place] coronary artery without angina pectoris (29) Low HDL (under 40): Status: Acute Code(s): E78.6 - Lipoprotein deficiency (30) Morbid obesity: Status: Acute Code(s): E66.01 - Morbid (severe) obesity due to excess calories (31) Hyperlipidemia: Code(s): E78.5 - Hyperlipidemia, unspecified Plan: Transfer to [facility] for additional PT/OT/ST Medications at Discharge Home Medications Repatha Syringe 140 mg SUBCUT QWEEK 12/16/20 aspirin 81 mg PO DAILY 12/16/20 atorvastatin 40 mg PO QHS 12/16/20 tamsulosin 0.4 mg PO DAILY 12/16/20 acetaminophen [Tylenol] 650 mg PO Q6H PRN PRN #0 tab 01/07/21 amlodipine 10 mg PO DAILY #0 tab 01/07/21 bisacodyl 10 mg UT .PRN X 1 PRN #0 ea 01/07/21 carvedilol 12.5 mg PO BIDCM #0 tab 01/07/21 guaifenesin 200 mg PO Q6H PRN PRN #0 ml 01/07/21 ipratropium bromide 2 spray NASAL BID #0 ml 01/07/21 magnesium hydroxide 30 ml PO .PRN X 1 PRN #0 ml 01/07/21 melatonin 3 mg PO QHS #0 tab 01/07/21 menthol-zinc oxide [Calmoseptine] 1 applic TOPICAL BID@0600,2200 #0 g 01/07/21 metformin 500 mg PO 1700 #0 tab 01/07/21 nystatin [Nyamyc] 1 applic TOPICAL BID@0600,2200 #0 g 01/07/21 potassium chloride [Klor-Con M20] 20 meq PO DAILYCM #0 tab 01/07/21 pregabalin 25 mg PO BID #60 cap 01/07/21 sertraline 50 mg PO DAILY #0 tab 01/07/21 Hospital Course Operations None Procedures - (Modified barium swallow) Summary of Care Provided Minutes Spent on Discharge: 45 Hospital Course: JADEN LEYVA, is a 75-year-old M with a past medical history of hypertension, hyperlipidemia, coronary artery disease, history of CABG, history of bioprosthetic aortic valve replacement, WILLIAM, morbid obesity, newly diagnosed diabetes mellitus type 2, DVT with pulmonary embolus (pt can not recall if provoked or unprovoked), prostate cancer diagnosed in 2005 ( treated with shots that he still gets monthly form his urologist), tobacco dependence in remission, prostatic hypertrophy, dilated ascending aorta and radicular pain in the Left buttock and groin who presented to an outside ER on 12/10/20 with LUE weakness and numbness. The LLE had been weak for months and he attributes this to back problems which started after he fell off a treadmill. The CTB showed no acute pathology and he was given TPA in the ED and then transported to [facility]. Initially the CT at [facility] showed lacunar infarcts in the BL basal ganglia and the joseph. MRI was not done due to WILLIAM and valve replacement however, he had an extension of the sx and the LUE became flaccid. An MRI was then ordered and showed an ischemic infarct in the R MCA distribution gretel the R parietal and the R occipital lobes. There was a very small area of hemorrhagic transformation which is stable. He was placed on dual antiplatelet drugs which he will take for 3 weeks and then 1 of the antiplatelet drugs can be discontinued. Plavix was discontinued on 01/07/21. ECHO showed no PFO and he had no atrial tachy dysrhythmias or AF. The EF is 80%. The findings on the MRI with multiple areas of infarct in the R parietal and occipital lobes is suspicious for AF and he will need an event monitor following DC from Rehab. He has multiple RF's for AF. He was transferred to the acute rehab unit at [facility] on 12/16/20 for 3 hours of therapy daily to restore function/independence at or near his level prior to the stroke. His modified [place] score at admission to rehab was a 5/5. Ed's moods were very labile initially, one minute he was polite and cooperative and the next very agitated and argumentative. Sertraline was started for suspected pseudobulbar affect and his mood is now stable and is is generally cooperative with therapy. He complained of a chronic cough which he blamed on and JEOVANY inhibitor he had not taken for some time. The first few days he was here he coughed very frequently and the cough improved significantly with the addition of Atrovent nasal spray to his drug regimen. He continued to cough occasionally and the cough sounded moist. A modified barium swallow was done on 12/22/2020. The examination was consistent with moderate oral pharyngeal dysphagia and he was placed on moderately thickened liquids and regular textures. No straws and he was instructed to take small sips and small bites and to swallow and clear his mouth of residue prior to taking another sip or bite. I suspect he has been aspirating at home and some of the lacunar infarcts in the joseph and midbrain are likely old. BP was not adequately controlled at admission but with increase in the Amlodipine dose to 10 mg and increase in the Coreg from 3.125 mg to 12.5 mg the BP is now well controlled. The blood sugars are very well controlled on a 1600 calorie diet and Glucophage 500 mg daily. He complained of pain in the Left buttocks and groin at admission and he also had hyperaesthesia in the left LE. He was started on Lyrica 25 mg BID (both for RLS/insomnia and radicular pain) and he has not complained of pain since then. 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 Steps have been very difficult for him but on 01/05/2021 he was able to go up/down three 4 inch steps with 1 handrail at mod/min assist x2. He was able to walk 50 feet with a hemiwalker but needs moderate/minimal assistance and his left lower extremity is Jeovany wrapped into dorsiflexion. He is now able to advance his left lower extremity on his own 100% of the time and able to keep his knee stable 95% of the time. He has improved from requiring 2 people to assist for transfers to min/mod assistance x1. He can eat at supervision/set up. He requires minimal assistance for grooming, maximal assistance with bathing, total assistance with upper body dressing and lower body dressing and total assistance with toilet transfer and toileting. He is being discharged to [facility] for additional therapy. He will need to have an event monitor placed following DC from rehab as I suspect he is having PAF and the strokes are embolic. No AF has been documented during the acute hospitalization or the rehab stay. He will follow up with his PCP going forward and will also need to follow up with neurology. He will also need to follow up with hematology. He was pancytopenic at admission and he continues to have leukopenia and anemia. the plt's are hovering in the low 150's now. He was discharged on 01/08/21 in good condition. Physical Exam Const alert, oriented x3, no apparent distress and well nourished Constitutional Narrative: mood is more stable and he is not having angry outbursts.......he is much less labile since the Sertraline was started. General Appearance: cooperative, comfortable and well developed Nutritional Appearance: morbidly obese HEENT normocephalic, head/scalp atraumatic and moist oral mucous membranes Eyes PERRL, EOMs intact bilaterally, conjunctivae normal, no scleral icterus and normal visual [place] by confrontation Eyes Narrative: no gaze preference Neck No nuchal rigidity, no lymphadenopathy, supple and no carotid bruits Neck Narrative: The neck is short and thick and very difficult to assess for JVD. General: trachea midline; Negative for lymphadenopathy Chest Chest: symmetrical chest wall rise Resp normal respiratory effort, no use of accessory muscles and clear to auscultation bilaterally Resp Narrative: Diminished due to body habitus. Not tachypneic and no accessory muscle use. Effort and Inspection: able to speak in complete sentences Cardio regular rate, regular rhythm, S1 normal heart sound, S2 normal heart sound, no murmurs, no rub and no gallops Cardio Narrative: no ectopy GI normal to inspection, nondistended, normoactive bowel sounds, soft to palpation and non-tender GI Narrative: obese, soft, ND, NT, no guarding with palpation, normal BS's Back/Spine Back/Spine Narrative: He has not complained of back or leg pain since the Lyrica was started. Extremity no calf tenderness Extremity Narrative: He has pitting edema of both ankles but this is under better control with the addition of ABELARDO hose. I suspect the edema is due to chronic venous insufficiency but, with the WILLIAM can not rule out pulmonary HTN as a contributing factor. General Extremity: Negative for clubbing or cyanosis Skin Skin Narrative: No rashes, no skin breakdown. General Skin Exam: no breakdown and ecchymosis Rashes: no rashes Neuro oriented x3 Neuro Narrative: the hypertonicity and pain in the left calf has resolved with the addition of Lyrica to his drug regimen. He also is not c/o L hip pain any longer. I think the pain is radicular. I can now do a Ramin test and he does not c/o pain. He still has flaccid paralysis of the LUE but he is moving the LLE and can no move his left foot forward while ambulating without assistance. Motor Exam: strength 5/5 throughout Psych Psych Narrative: He is less impulsive and the moods are less labile since the addition of Sertraline to his drug regimen. He is more cooperative and less argumentative. Appearance: appropriate Weight / BMI Weight Weight: 248 lb 0.321 oz Body Mass Index (BMI) 44.2 ABG / Lab / Microbiology Data Result Diagrams: 01/05/21 05:23 01/05/21 05:23 Laboratory: Laboratory Results - last 24 hr 01/06/21 21:19: POC Glucose 133 H 01/07/21 06:05: POC Glucose 116 H Microbiology: Microbiology 01/05/21 06:58 Nasal Secretion SARS-CoV-2 Antigen (Rapid) - Final D/C Instructions Please Follow Up With: Baljit Flynn Meaningful Use Info Meaningful Use Diagnoses (Choose all that apply): Ischemic CVA CVA Therapy Assessed for PT,OT and/or ST?: Yes Ischemic Stroke Antithrombotic order at d/c?: Yes Dx of Atrial fib/flutter?: No Anticoagulant at discharge?: No Reason anticoagulant not ordered: Treatment not Indicated Statins at discharge?: Yes Primary Dx Acute Ischemic CVA?: Yes IV tPA ordered during stay?: No Reason IV t-PA not ordered: Procedure not Indicated (He received TPA at [facility] prior to being transferred to acute rehab.) Discharge Plan Admission Admit Date/Time: 12/16/20 18:30 Primary Reason for Your Visit: Debility secondary to ischemic CVA Attending Provider: Ursula Louie Primary Care Provider: Care Physician,No Primary Discharge Orders/Prescriptions Prescriptions: New acetaminophen [Tylenol] 325 mg Tablet 650 mg PO Q6H PRN PRN (Reason: Pain Score 1-10) Qty: 0 RF: 0 carvedilol 12.5 mg Tablet 12.5 mg PO BIDCM Qty: 0 RF: 0 amlodipine 10 mg Tablet 10 mg PO DAILY Qty: 0 RF: 0 bisacodyl 10 mg Suppository 10 mg UT .PRN X 1 PRN (Reason: Constipation) Qty: 0 RF: 0 guaifenesin 100 mg/5 mL Liquid 200 mg PO Q6H PRN PRN (Reason: COUGH) Qty: 0 RF: 0 magnesium hydroxide 400 mg/5 mL Suspension 30 ml PO .PRN X 1 PRN (Reason: Constipation) Qty: 0 RF: 0 ipratropium bromide 42 mcg (0.06 %) [place],Non-Aerosol 2 spray NASAL BID Qty: 0 RF: 0 metformin 500 mg Tablet 500 mg PO 1700 Qty: 0 RF: 0 melatonin 3 mg Tablet 3 mg PO QHS Qty: 0 RF: 0 nystatin [Nyamyc] 100,000 unit/gram Powder 1 applic topical BID@0600,2200 Qty: 0 RF: 0 menthol-zinc oxide [Calmoseptine] 0.44-20.6 % Ointment 1 applic topical BID@0600,2200 Qty: 0 RF: 0 potassium chloride [Klor-Con M20] 20 mEq Tablet,Er Particles/Crystals 20 meq PO DAILYCM Qty: 0 RF: 0 pregabalin 25 mg Capsule 25 mg PO BID Qty: 60 RF: 0 sertraline 50 mg Tablet 50 mg PO DAILY Qty: 0 RF: 0 Continued atorvastatin 40 mg Tablet 40 mg PO QHS RF: 0 aspirin 81 mg Tablet,Delayed Release (Dr/Ec) 81 mg PO DAILY RF: 0 tamsulosin 0.4 mg capsule 0.4 mg PO DAILY RF: 0 Repatha Syringe 140 mg/mL syringe 140 mg SUBCUT QWEEK RF: 0 Discontinued amlodipine 5 mg Tablet 5 mg PO DAILY RF: 0 carvedilol 3.125 mg tablet 3.125 mg PO BID RF: 0 clopidogrel 75 mg PO/SL DAILY RF: 0 Referrals / Follow Up: Care Physician,No Primary [Primary Care Provider] - Disposition Disposition (needs filled in before D/C Order can be placed): [facility] Facility Charges/Coding Visit Charges Inpatient E&M: 91616 Disch Hosp
[2021-01-07 20:45] VITALS: BP 153/55; PULSE 63; RESP 18; TEMP 36.8; O2SAT 95; BMI 44.2
[2021-01-07 20:51] LABS: Bedside Glucose 138 mg/dL (70-110)
[2021-01-07] MEDS: MELATONIN 3 MG TABLET PO (20:52)
[2021-01-07] MEDS: Atorvastatin Calcium 40 MG Tablet PO (20:52)
[2021-01-07 20:56] VITALS: BP 143/65; PULSE 67
[2021-01-07] MEDS: hydrALAZINE 10 MG Tablet PO (20:56)
[2021-01-08 06:43] VITALS: BP 149/68; PULSE 61
[2021-01-08] MEDS: hydrALAZINE 10 MG Tablet PO (06:43)
[2021-01-08] MEDS: Menthol/Lanolin/Calamine/Znox 113 GM Tube 1 APPLIC TOPICAL (06:48)
[2021-01-08] MEDS: Nystatin Powder 15gm Bottle 1 APPLIC TOPICAL (06:48)
[2021-01-08] MEDS: Enoxaparin 40 MG/0.4 ML Syringe SC (06:49)
[2021-01-08 07:01] LABS: Bedside Glucose 127 mg/dL (70-110)
[2021-01-08] MEDS: Carvedilol 12.5 MG Tablet PO (07:57)
[2021-01-08] MEDS: Pregabalin 25 MG Capsule PO (07:57)
[2021-01-08] MEDS: Clopidogrel Bisulfate 75 MG Tablet PO (07:57)
[2021-01-08] MEDS: Sertraline 50 MG Tablet PO (07:57)
[2021-01-08] MEDS: amLODIPine 10 MG Tablet PO (07:57)
[2021-01-08] MEDS: Aspirin E.C. 81 MG Tablet PO (07:57)
[2021-01-08] MEDS: Potassium Chloride Oral Tablet 20 MEQ PO (07:58)
[2021-01-08] MEDS: Ipratropium Bromide 0.06% NASAL SPRAY 2 SPRAY NASAL (07:58)
[2021-01-08 09:08] VITALS: BP 149/68; PULSE 61; RESP 16; TEMP 36.7; O2SAT 95
[2021-01-08 12:15] VITALS: BMI 44.2
--- NOTE | 2021-01-08 13:00 | NURSING ---
Discharge to [facility] and report provided to facility. Transport here for patient.
== END 2021-01-08 13:00 | disposition skilled nursing facility (03) | DRG 57 ==
PROVIDERS: Admitting Provider Internal Medicine; Visit Provider Internal Medicine
DX: I69.354 Hemiplegia and hemiparesis following cerebral infarction affecting left non-dominant side (principal); Z68.41 Body mass index [BMI] 40.0-44.9, adult; D61.818 Other pancytopenia; I69.391 Dysphagia following cerebral infarction; R13.12 Dysphagia, oropharyngeal phase; Z23 Encounter for immunization; E78.5 Hyperlipidemia, unspecified; G47.33 Obstructive sleep apnea (adult) (pediatric); I10 Essential (primary) hypertension; I25.10 Atherosclerotic heart disease of native coronary artery without angina pectoris; E11.9 Type 2 diabetes mellitus without complications; E66.01 Morbid (severe) obesity due to excess calories; R15.9 Full incontinence of feces; N40.0 Benign prostatic hyperplasia without lower urinary tract symptoms; B35.4 Tinea corporis; E87.6 Hypokalemia; F32.9 Major depressive disorder, single episode, unspecified; F48.2 Pseudobulbar affect; Z95.1 Presence of aortocoronary bypass graft; Z95.3 Presence of xenogenic heart valve; Z86.718 Personal history of other venous thrombosis and embolism; Z86.711 Personal history of pulmonary embolism; Z79.899 Other long term (current) drug therapy; Z79.02 Long term (current) use of antithrombotics/antiplatelets; Z79.82 Long term (current) use of aspirin; Z87.891 Personal history of nicotine dependence
CPT/HCPCS: 36415; 74230; 80048; 80053; 82962; 83735; 84100; 85025; 85027; 87426; 92507; 92523; 92526; 92611; 93971; 97110; 97112; 97116; 97140; 97162; 97166; 97530; 97535; 97802; 99251; G0008; 90686; G0463